=== PATIENT | male | born 1930 | race Caucasian/White ===

== ENCOUNTER 2016-11-14 13:48 | Inpatient (IN) | payer OTHER, MEDICARE ==
[~2016-11-14] VITALS: Ht 172.7 cm; Wt 90.3 kg
--- NOTE | 2016-11-14 14:09 | NUR ---
PT BIBA FROM [facility] FOR AMS. PER DAUGHTER PT IS NORMALLY ALERT AND ORIENTED. DAUGHTER STATES PATIENT WAS LAST SEEN AT [facility] SATURDAY NIGHT. PT ARRIVES IN ED LETHARGIC AND AMS. PT NOTED TO HAVE TREMORS AND LEFT SIDED FACIAL DROOP WHICH PER EMS IS PTS BASELINE. PT HAD LABS DONE AND HAD POTASSIUM OF 5.2 AND ELEVATED WBC
--- NOTE | 2016-11-14 14:28 | NUR ---
DAUGHTER AT BEDSIDE, REPORTING PT IS NOT AT HIS BASELINE. GENERALLY CAN EXPRESS SELF CLEARER THAN HE CAN TODAY.
[2016-11-14] MEDS ORDERED: LIDOCAINE1 EACH TOP (14:37)
[2016-11-14] MEDS ORDERED: ASPIRIN81 M4 PO (14:37)
--- NOTE | 2016-11-14 14:37 | NUR ---
ORDERS PLACED BY CHEST XRAY AT THE BEDSIDE
[2016-11-14] MEDS ORDERED: TRAMADOL HCL50 M1 PO (14:38)
[2016-11-14] MEDS ORDERED: AMOXICILLIN500 M3 PO (14:39)
[2016-11-14] MEDS ORDERED: ESCITALOPRAM OX20 MG PO (14:39)
[2016-11-14] MEDS ORDERED: TOPROL XL25 M1 PO (14:40)
[2016-11-14] MEDS ORDERED: ALLOPURINOL100 M1 PO (14:40)
[2016-11-14] MEDS ORDERED: ATORVASTATIN CA10 M1 PO (14:40)
[2016-11-14] MEDS ORDERED: AMLODIPINE BESYL5 M1 PO (14:41)
[2016-11-14] MEDS ORDERED: ACIDOPHILUS1 EACH PO ×2 (14:42→14:46)
[2016-11-14] MEDS ORDERED: LASIX40 M1 PO (14:42)
[2016-11-14] MEDS ORDERED: ISOSORBIDE MONO60 M1 PO (14:42)
[2016-11-14] MEDS ORDERED: LANTUS SOL100 UNIT/1 SC (14:43)
[2016-11-14] MEDS ORDERED: NOVOLOG FL100 UNIT/1 SC (14:44)
[2016-11-14] MEDS ORDERED: CARBIDOPA-LEVO1 EAC8 PO (14:44)
--- NOTE | 2016-11-14 14:44 | NUR ---
LABS DRAWN AND SENT (BLUE, SST, LAV, ARREOLA, PINK)
[2016-11-14] MEDS ORDERED: ADVAIR 250-501 EACH INH (14:45)
[2016-11-14] MEDS ORDERED: CRANBERRY400 M3 PO (14:45)
[2016-11-14] MEDS ORDERED: DAILY MULTIPLE1 EACH PO (14:46)
[2016-11-14] MEDS ORDERED: FISH OIL 1,2001 EACH PO (14:46)
[2016-11-14] MEDS ORDERED: LATANOPROST2.5 ML OPH (14:47)
--- NOTE | 2016-11-14 14:50 | NUR ---
TAKEN TO CT SCAN VIA STRETCHER
--- NOTE | 2016-11-14 14:53 | RADIOLOGY REPORT ---
EXAMINATION: XR PORTABLE CHEST CLINICAL INFORMATION: Weakness. Confusion. COMPARISON: None TECHNIQUE: Portable AP portable view of the chest was obtained. 2:37 PM FINDINGS: Lung volume low. Lungs are clear. No pulmonary vascular congestion or pleural effusion. Heart size normal. There are vascular wall calcifications of thoracic aorta. Ventriculoperitoneal shunt line over the right side of the chest IMPRESSION: No acute abnormality of chest.
[2016-11-14 14:54] LABS: ABSOLUTE BASOPHIL COUNT 0 /CUMM (0.0-0.2); ABSOLUTE EOSINOPHIL COUNT 0.3 /CUMM (0.0-0.7); ABSOLUTE GRANULOCYTE CT 8.5 /CUMM (1.4-6.5); ABSOLUTE LYMPH COUNT 2.1 /CUMM (1.2-3.4); BASOPHIL % 0.4 % (0.0-2.0); EOSINOPHIL % 2.2 % (0-5); GRANULOCYTE % 71.3 % (42.2-75.2); HEMATOCRIT 36.6 % (42-52); MEAN CORPUSCULAR HGB 27.8 PG (27.0-31.0); MEAN PLATELET VOLUME 9.5 FL (7.4-10.4); PLATELET COUNT 177 /CUMM (130-400); RED BLOOD CELL CT 4.21 /CUMM (4.70-6.10); WHITE BLOOD CELL COUNT 11.9 /CUMM (4.8-10.8)
[2016-11-14 14:58] LABS: PT 11.6 SEC (9.4-12.5)
--- NOTE | 2016-11-14 15:05 | CT SCAN REPORT ---
EXAMINATION: CT HEAD WITHOUT CONTRAST CLINICAL INFORMATION: Weakness. Confusion. COMPARISON: None TECHNIQUE: Contiguous axial imaging was performed from the skull base to vertex without intravenous administration of contrast. DLP: 672.25 mGy-cm FINDINGS: There is motion which limits study. 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 There is atrophy with prominence of the ventricles and the sulci and hypodensity of the periventricular white matter due to chronic small vessel ischemic disease. There is vascular calcifications of the internal carotid arteries bilaterally. There is no evidence of acute intracranial hemorrhage or acute territorial infarction. No abnormal mass effect or midline shift is seen. Vazquez to white matter differentiation is well preserved. No extra-axial fluid collections are identified. There is a ventriculoperitoneal shunt present attending from the right occipital bone. Catheter tip extends into the right temporal region with catheter tip abutting against the right sphenoid bone in the middle cranial fossa Lobular soft tissue density opacifies the left maxillary sinus. There is a surgical window in the medial wall the left maxillary sinus. The mastoid air cells and middle ear cavities are normally aerated. IMPRESSION: No acute intracranial pathology. Cerebral atrophy. Right-sided ventricular catheter. Lobular density opacifying the left maxillary sinus.
--- NOTE | 2016-11-14 15:12 | NUR ---
REPORT GIVEN TO CYNTHIA RODRIGUEZ
--- NOTE | 2016-11-14 15:14 | ED AMS/SEIZURE/WEAK/DIZZY ---
History of Present Illness General Chief Complaint: Altered Mental Status Stated Complaint: BIBA AMS Source: family, old records, EMS Exam Limitations: clinical condition Vital Signs & Intake/Output Vital Signs & Intake/Output Vital Signs Date Time Temp Pulse Resp B/P B/P Pulse O2 O2 Flow FiO2 Mean Ox Delivery Rate 11/14 1601 97.0 74 20 153/65 94 Nasal 2.0L Cannula 11/14 1519 98.7 70 22 134/62 94 Nasal 2.0L Cannula 11/14 1452 97 Room Air 11/14 1400 96.4 74 20 134/56 98 Room Air Allergies Coded Allergies: cefadroxil (From DURICEF) (UNKNOWN 11/14/16) cefuroxime (From CEFTIN) (UNKNOWN 11/14/16) donepezil (From ARICEPT) (UNKNOWN 11/14/16) rivastigmine (From EXELON) (UNKNOWN 11/14/16) Reconcile Medications Allopurinol 100 MG TABLET 2 TAB PO DAILY UNKNOWN (Reported) Amlodipine Besylate 5 MG TABLET 1 TAB PO DAILY HEART (Reported) Amoxicillin 500 MG TABLET 1 TAB PO ONCE DENTAL APPT (Reported) Aspirin (Aspirin*) 81 MG TAB.CHEW 1 TAB PO DAILY HEART HEALTH (Reported) Atorvastatin Calcium 10 MG TABLET 1 TAB PO 1700 CHOLESTEROL (Reported) Carbidopa/Levodopa (Carbidopa-Levodopa 25-250 Tab) 25 MG-250 MG TABLET 1 TAB PO TID PARKINSONS (Reported) Cranberry Fruit (Cranberry) (Unknown Strength) TABLET (Unknown Dose) PO BID SUPPLEMENT (Reported) Escitalopram Oxalate 20 MG TABLET 1 TAB PO DAILY MENTAL HEALTH (Reported) Fish Oil/Dha/Epa (Fish Oil 1,200 MG Fish Oil) 1,200 MG-144 MG-216 MG CAPSULE 1 CAP PO DAILY SUPPLEMENT (Reported) Fluticasone/Salmeterol (Advair 250-50 Diskus) 250 MCG-50 MCG/DOSE BLST.W.DEV 1 PUF INH BID BREATHING PROBLEMS (Reported) Furosemide (Lasix) 40 MG TABLET 1 TAB PO DAILY WATER RETENTION (Reported) Insulin Aspart, Recombinant (Novolog Flexpen) 100 UNIT/ML INSULN.PEN 12 U SC TID DIABETES (Reported) Insulin Glargine,Hum.rec.anlog (Lantus Solostar) 100 UNIT/ML (3 ML) INSULN.PEN 8 UNIT SC QPM DIABETES (Reported) Isosorbide Mononitrate (Isosorbide Mononitrate ER) 60 MG TAB.ER.24H 1 TAB PO DAILY HEART (Reported) Lactobacillus Acidophilus (Acidophilus) 1 EACH CAPSULE 1 CAP PO DAILY GI ( Reported) Latanoprost 0.005 % DROPS 1 GTT OPH QPM EYE (Reported) Lidocaine 5 % ADH..PATCH 1 PAT TOP DAILY PAIN (Reported) Metoprolol Succ XL (Toprol XL) 25 MG TAB 1 TAB PO DAILY HEART (Reported) Multivitamin (Daily Multiple Vitamin) 1 EACH TABLET 1 TAB PO DAILY VITAMIN SUPPORT (Reported) Tramadol HCl 50 MG TABLET 0.5 TAB PO BID PAIN (Reported) Triage Note: [facility]. PER DAUGHTER PT IS NORMALLY ALERT AND ORIENTED. DAUGHTER STATES PATIENT WAS LAST SEEN AT [facility] SATURDAY NIGHT. PT ARRIVES IN ED LETHARGIC AND AMS. PT NOTED TO HAVE TREMORS AND LEFT SIDED FACIAL DROOP WHICH PER EMS IS PTS BASELINE. PT HAD LABS DONE AND HAD POTASSIUM OF 5.2 AND ELEVATED WBC Triage Nurses Notes Reviewed? yes Onset: Abrupt Duration: day(s): (1), last seen normal saturday Injury Environment: home Severity: mild, moderate No Modifying Factors: none HPI: This is an 85-year-old male with history of Parkinson's, diabetes, COPD, nonambulatory for several months who presents to the ER for chief complaint of change in mental status. Daughter at the bedside who is his legal guardian states that she has not seen him since Saturday but he is change from his baseline. Speech is garbled and he is confused. He appears to have bitten his tongue. Patient without an history of seizures but does have a history of previous TIA. He is s/p treatment for pneumonia. Past History Travel History Traveled to [place] past 21 day No Medical History Any Pertinent Medical History? 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 No Review of Systems Review of Systems Constitutional: Reports: see HPI (UNABLE TO OBTAIN). Physical Exam Physical Exam General Appearance: well developed/nourished, alert, awake, anxious, mild distress, moderate distress Head: atraumatic Eyes: Bilateral: PERRL. Ears, Nose, Throat: BRUISING ON TONGUE Neck: normal inspection Respiratory: normal breath sounds, chest non-tender, no respiratory distress Cardiovascular: regular rate/rhythm Peripheral Pulses: 2+ radial (R), 2+ radial (L) Gastrointestinal: soft, non-tender Back: normal inspection Extremities: 5/5 STRENGTH B/L ARMS Neurologic/Psych: awake, alert Skin: intact, normal color, warm/dry Core Measures ACS in differential dx? No CVA/TIA Diagnosis: Yes NIH Stroke Scale: Total 1 Comment: aspirin given in ecf Severe Sepsis Present: No Septic Shock Present: No Progress Differential Diagnosis: CVA/stroke, dehydration, encephalitis, seizure disorder Plan of Care: Orders Procedure Date/time Status Admit to inpatient 11/14 1629 Active Straight Cath 11/14 1628 Active CULTURE,URINE 11/14 1628 Active BLOOD CULTURE 11/14 1628 Active ARTERIAL BLOOD GAS (GEN) 11/14 1529 Active Add-on Test (ER Only) 11/14 1529 Active PROLACTIN 11/14 1439 Complete URINE DRUGS OF ABUSE 11/14 1432 Active URINALYSIS 11/14 1432 Active TROPONIN LEVEL 11/14 1432 Complete PROTHROMBIN TIME 11/14 1432 Complete MAGNESIUM 11/14 1432 Complete COMPREHENSIVE METABOLIC PANEL 11/14 1432 Complete CBC WITHOUT DIFFERENTIAL 11/14 1432 Complete EKG 11/14 1432 Active Laboratory Tests 11/14/16 1540: pH 7.42, pCO2 47 H, pO2 93, HCO3 30 H, ABG O2 Sat (Measured) 96.0, P-50 (Temp Corrected) N, Carboxyhemoglobin 0.5 L, O2 Concentration % 2L, Temperature 98.7, O2 Delivery Method NC, Phlebotomy Draw Site RIGHT RADIAL 11/14/16 1439: Anion Gap 12, Estimated GFR 32 L, BUN/Creatinine Ratio 17.5, Glucose 82, Calcium 8.4, Magnesium 2.0, Total Bilirubin 0.6, AST 19, ALT 28, Alkaline Phosphatase 86, Troponin I 0.02, Total Protein 5.8 L, Albumin 3.2 L, Globulin 2.6, Albumin/Globulin Ratio 1.2, Prolactin 6.3, PT 11.6, INR 1.11, CBC w Diff NO MAN DIFF REQ, RBC 4.21 L, MCV 87.0, MCH 27.8, RDW 17.0 H, MPV 9.5, Gran % 71.3 , Lymphocytes % 17.9 L, Monocytes % 8.2, Eosinophils % 2.2, Basophils % 0.4, Absolute Granulocytes 8.5 H, Absolute Lymphocytes 2.1, Absolute Monocytes 1.0 H, Absolute Eosinophils 0.3, Absolute Basophils 0, PUBS MCHC 32.0 L Microbiology 11/15 1627 URINE ROUT: Urine Culture - ORD 11/15 1627 BLOOD: Blood Culture - ORD 11/15 1627 BLOOD: Blood Culture - ORD Diagnostic Imaging: Viewed by Me: Radiology Read, CT Scan. Discussed w/RAD: Radiology Read, CT Scan. Radiology Impression: PATIENT: EDEL TRISTAN PRESENT AGE: 85 PATIENT ACCOUNT NO: [id number] : 32 LOCATION: [facility] ORDERING PHYSICIAN: CHRISTINE QUESADA MD SERVICE DATE: 11/14/16 EXAM TYPE: CAT - CT HEAD WO IV CONTRAST EXAMINATION: CT HEAD WITHOUT CONTRAST CLINICAL INFORMATION: Weakness. Confusion. COMPARISON: None TECHNIQUE: Contiguous axial imaging was performed from the skull base to vertex without intravenous administration of contrast. DLP: 672.25 mGy-cm FINDINGS: There is motion which limits study. 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 There is atrophy with prominence of the ventricles and the sulci and hypodensity of the periventricular white matter due to chronic small vessel ischemic disease. There is vascular calcifications of the internal carotid arteries bilaterally. There is no evidence of acute intracranial hemorrhage or acute territorial infarction. No abnormal mass effect or midline shift is seen. Vazquez to white matter differentiation is well preserved. No extra-axial fluid collections are identified. There is a ventriculoperitoneal shunt present attending from the right occipital bone. Catheter tip extends into the right temporal region with catheter tip abutting against the right sphenoid bone in the middle cranial fossa Lobular soft tissue density opacifies the left maxillary sinus. There is a surgical window in the medial wall the left maxillary sinus. The mastoid air cells and middle ear cavities are normally aerated. IMPRESSION: No acute intracranial pathology. Cerebral atrophy. Right- sided ventricular catheter. Lobular density opacifying the left maxillary sinus. DICTATED BY: RAISA HOYOS MD DATE/TIME DICTATED:11/14/161456 FIRE SAFETY INSPECTOR :RIAZ DATE/TIME TRANSCRIBED:11/14/161456 CONFIDENTIAL, DO NOT COPY WITHOUT APPROPRIATE AUTHORIZATION. <Electronically signed in Other Vendor System> SIGNED BY: RAISA HOYOS MD 11/14/16 1505 CXR Impression: PATIENT: EDEL TRISTAN PRESENT AGE: 85 PATIENT ACCOUNT NO: [id number] : 32 LOCATION: [facility] ORDERING PHYSICIAN: CHRISTINE QUESADA MD SERVICE DATE: 11/14/16 EXAM TYPE: RAD - XRY-PORTABLE CHEST XRAY EXAMINATION: XR PORTABLE CHEST CLINICAL INFORMATION: Weakness. Confusion. COMPARISON: None TECHNIQUE: Portable AP portable view of the chest was obtained. 2:37 PM FINDINGS: Lung volume low. Lungs are clear. No pulmonary vascular congestion or pleural effusion. Heart size normal. There are vascular wall calcifications of thoracic aorta. Ventriculoperitoneal shunt line over the right side of the chest IMPRESSION: No acute abnormality of chest. DICTATED BY: RAISA HOYOS MD DATE/TIME DICTATED:11/14/161447 FIRE SAFETY INSPECTOR:RIAZ DATE/TIME TRANSCRIBED:11/14/161447 CONFIDENTIAL, DO NOT COPY WITHOUT APPROPRIATE AUTHORIZATION. <Electronically signed in Other Vendor System> SIGNED BY: RAISA HOYOS MD 11/14/16 1453 Initial ED EKG: RBBB Prior EKG: unchanged Departure Departure Time of Disposition: 1628 Disposition: STILL A PATIENT Condition: Stable Clinical Impression Primary Impression: Altered mental state Secondary Impressions: NAFISA (acute kidney injury) Referrals: JEAN REIS,FIFI Gonzalez (PCP/Family) Departure Forms: Customer Survey General Discharge Information Admission Note Spoke With: RAMON SYLVESTER MD Documentation of Exam: Documentation of any treatments & extenuating circumstances including Concerns Regarding Discharge (functional status, medication knowledge or non-compliance, living conditions, etc.) that warrant an admission rather than observation: [ TELE MONITOR, NEURO CHECKS, IV FLUIDS, MONITOR I/O, NEURO CONSULT, CONSIDER EEG, F/U RESULTS OF BLOOD AND URINE CULTURES]
--- NOTE | 2016-11-14 15:31 | NUR ---
[phone] HOLLI BAUMAN PT DAUGHTER
--- NOTE | 2016-11-14 15:48 | NUR ---
RESP AT BEDSIDE
--- NOTE | 2016-11-14 15:50 | NUR ---
DR GATICA AT BEDSIDE
--- NOTE | 2016-11-14 16:00 | NUR ---
PT FLUIDS RUNNING PER EMAR
--- NOTE | 2016-11-14 17:16 | History & Physical ---
LOREN REIS,[facility] [place] 11/14/16 4295: General Information and HPI MD Statement: I have seen and personally examined EDEL PINEDA and documented this H&P. The patient is a 85 year old M who presented with a patient stated chief complaint of [altered mental status]. Source of Information: family, W10 Exam Limitations: unable to give history, clinical condition, confusion, dementia History of Present Illness: Mr. Pineda is a 85 y/o M with PMHx of Parkinson's disease, subarachnoid hemorrhage s/p evacuation and placement of right DIRECT CARE SPECIALIST shunt and colon cancer s/p resection who presents from [facility] with 5-day history of altered mental status. Patient was unable to give any history due to his altered mental status and underlying dementia and history was obtained from [facility] and his daughter over the phone. Patient was diagnosed with pneumonia based on a CXR that was performed on 11/01/16 and treated with a 10-day course of levofloxacin. Urine culture was obtained on 11/10/16 which grew 10,000 colonies of Pseudomonas resistant to ciprofloxacin and sensitive ceftazidime, gentamicin and imipenem. Patient has poor performance status at baseline. He is confused and requires Janene lift but can still hold a conversation and feed himself. According to patient's daughter, patient's mental status has deteriorated over the past 5 days. Patient's nurse reports that the night prior to current presentation, he appeared to be agitated. Today, he was noted to have increasing tremors in his hands and was lethargic at the nursing facility. Allergies/Medications Home Med list Allopurinol 100 MG TABLET 2 TAB PO DAILY UNKNOWN (Reported) Amlodipine Besylate 5 MG TABLET 1 TAB PO DAILY HEART (Reported) Amoxicillin 500 MG TABLET 1 TAB PO ONCE DENTAL APPT (Reported) Aspirin (Aspirin*) 81 MG TAB.CHEW 1 TAB PO DAILY HEART HEALTH (Reported) Atorvastatin Calcium 10 MG TABLET 1 TAB PO 1700 CHOLESTEROL (Reported) Carbidopa/Levodopa (Carbidopa-Levodopa 25-250 Tab) 25 MG-250 MG TABLET 1 TAB PO TID PARKINSONS (Reported) Cranberry Fruit (Cranberry) (Unknown Strength) TABLET (Unknown Dose) PO BID SUPPLEMENT (Reported) Escitalopram Oxalate 20 MG TABLET 1 TAB PO DAILY MENTAL HEALTH (Reported) Fish Oil/Dha/Epa (Fish Oil 1,200 MG Fish Oil) 1,200 MG-144 MG-216 MG CAPSULE 1 CAP PO DAILY SUPPLEMENT (Reported) Fluticasone/Salmeterol (Advair 250-50 Diskus) 250 MCG-50 MCG/DOSE BLST.W.DEV 1 PUF INH BID BREATHING PROBLEMS (Reported) Furosemide (Lasix) 40 MG TABLET 1 TAB PO DAILY WATER RETENTION (Reported) Insulin Aspart, Recombinant (Novolog Flexpen) 100 UNIT/ML INSULN.PEN 12 U SC TID DIABETES (Reported) Insulin Glargine,Hum.rec.anlog (Lantus Solostar) 100 UNIT/ML (3 ML) INSULN.PEN 8 UNIT SC QPM DIABETES (Reported) Isosorbide Mononitrate (Isosorbide Mononitrate ER) 60 MG TAB.ER.24H 1 TAB PO DAILY HEART (Reported) Lactobacillus Acidophilus (Acidophilus) 1 EACH CAPSULE 1 CAP PO DAILY GI ( Reported) Latanoprost 0.005 % DROPS 1 GTT OPH QPM EYE (Reported) Lidocaine 5 % ADH..PATCH 1 PAT TOP DAILY PAIN (Reported) Metoprolol Succ XL (Toprol XL) 25 MG TAB 1 TAB PO DAILY HEART (Reported) Multivitamin (Daily Multiple Vitamin) 1 EACH TABLET 1 TAB PO DAILY VITAMIN SUPPORT (Reported) Tramadol HCl 50 MG TABLET 0.5 TAB PO BID PAIN (Reported) Past History Travel History Traveled to [place] past 21 day No Medical History Neurological: Parkinson's disease, TIA, subarachnoid hemorrhage Cardiovascular: endocarditis, RBBB Respiratory: COPD Renal: benign prost hyperplasia Musculoskeletal: gout Endocrine: diabetes Cancer(s): colon/rectal cancer, skin cancer Surgical History Surgical History: appendectomy, colon resection, evacuation of subarachnoid hemorrhage, right DIRECT CARE SPECIALIST shunt placement Past Family/Social History Psychosocial History Where do you live? Jail Facility Smoking Status: Former Smoker Living Will? yes Functional Ability ADLs Needs Assist: dressing, eating, toileting, bathing. Ambulation: non-ambulatory IADLs Needs Assist: shopping, housework, finances, food prep, telephone, transportation, medication admin. Review of Systems Review of Systems Constitutional: Reports: no symptoms. Exam & Diagnostic Data Last 24 Hrs of Vital Signs/I&O Vital Signs Date Time Temp Pulse Resp B/P B/P Pulse O2 O2 Flow FiO2 Mean Ox Delivery Rate 11/14 1930 97.1 67 20 148/64 100 Nasal 2.0L Cannula 05/03 1915 Nasal 2.0L Cannula 11/14 1817 96.7 70 20 168/69 92 Nasal 2.0L Cannula 11/14 1720 97.0 84 22 143/66 93 Nasal 2.0L Cannula 11/14 1656 97.0 80 20 150/70 94 Nasal 2.0L Cannula 11/14 1601 97.0 74 20 153/65 94 Nasal 2.0L Cannula 11/14 1519 98.7 70 22 134/62 94 Nasal 2.0L Cannula 11/14 1452 97 Room Air 05 1400 96.4 74 20 134/56 98 Room Air Physical Exam General Appearance Lethargic, Confused, Follows Some Commands, Not Oriented to Time, Person or Place Skin Purpuric Lesions Scattered Over Bilateral Lower Extremities HEENT Atraumatic, Dry Mucous Membranes, Left Facial Droop (Chronic), Bilateral Pupils Sluggish to Light Neck Supple Cardiovascular Regular Rate, Normal S1, Normal S2, No Murmurs, Gallops, Rubs Lungs Scattered Rhonchi, Diminished Breath Sounds Abdomen Soft, No Tenderness, Positive Bowel Sounds Neurological Reflexes 2+, No Focal Deficits Noted Extremities No Clubbing, No Cyanosis, No Edema, Normal Pulses Last 24 Hrs of Labs/Daniel: Laboratory Tests 11/14/16 1645: Urine Opiates Screen 137.00, Methadone Screen 62, Barbiturate Screen < 60, Ur Phencyclidine Scrn < 6.00, Amphetamines Screen < 100, U Benzodiazepines Scrn < 85, Urine Cocaine Screen < 50, Urine Cannabis Screen < 5.00, Urinalysis LIGHT H , Urine Color YEL, Urine Clarity CLDY H, Urine pH 6.5, Ur Specific Dubberly 1.010, Urine Protein NEG, Urine Ketones NEG, Urine Nitrite POS H, Urine Bilirubin NEG, Urine Urobilinogen 0.2, Ur Leukocyte Esterase LARGE H, Ur Microscopic SEDIMENT EXAMINED, Urine RBC RARE, Urine WBC > 75 H, Ur Epithelial Cells RARE, Urine Bacteria MOD H, Urine Mucus RARE, Micro UA Comment , Urine Hemoglobin TRACE-INTACT H, Urine Glucose NEG 11/14/16 1540: pH 7.42, pCO2 47 H, pO2 93, HCO3 30 H, ABG O2 Sat (Measured) 96.0, P-50 (Temp Corrected) N, Carboxyhemoglobin 0.5 L, O2 Concentration % 2L, Temperature 98.7, O2 Delivery Method NC, Phlebotomy Draw Site RIGHT RADIAL 11/14/16 1439: Anion Gap 12, Estimated GFR 32 L, BUN/Creatinine Ratio 17.5, Glucose 82, Calcium 8.4, Magnesium 2.0, Total Bilirubin 0.6, AST 19, ALT 28, Alkaline Phosphatase 86, Troponin I 0.02, Total Protein 5.8 L, Albumin 3.2 L, Globulin 2.6, Albumin/Globulin Ratio 1.2, Prolactin 6.3, PT 11.6, INR 1.11, CBC w Diff NO MAN DIFF REQ, RBC 4.21 L, MCV 87.0, MCH 27.8, RDW 17.0 H, MPV 9.5, Gran % 71.3 , Lymphocytes % 17.9 L, Monocytes % 8.2, Eosinophils % 2.2, Basophils % 0.4, Absolute Granulocytes 8.5 H, Absolute Lymphocytes 2.1, Absolute Monocytes 1.0 H, Absolute Eosinophils 0.3, Absolute Basophils 0, PUBS MCHC 32.0 L Diagnostic Data EKG Results HR 72 Normal sinus rhythm RBBB QTc 473 CXR Results No acute abnormality of the chest. Other Results CT HEAD: No acute intracranial pathology. Cerebral atrophy. Right-sided ventricular catheter. Lobular density opacifying the left maxillary sinus. Assessment/Plan Assessment: 85 y/o M with PMHx of Parkinson's disease, subarachnoid hemorrhage s/p evacuation and placement of right DIRECT CARE SPECIALIST shunt and colon cancer s/p resection who presents with altered mental status. #Altered mental status: Differential includes seizure given bruise on tongue, CVA vs. TIA, although CT Head is negative and neuro exam is grossly nonfocal, and infection, albeit there is no clear source and patient is afebrile with only mild leukocytosis. Although UTI is on the differential given recent positive urine culture, this should have been treated with the 10-day course of levofloxacin that patient received for pneumonia. CT Head no acute intracranial pathology. ABG with mild hypercapnia with pCO2 of 47 but CXR with no evidence of pneumonia. * Admit to telemetry to monitor for arrhythmias. * Neurology and ID consulted. Appreciate their recs. * EEG ordered to evaluate for seizure activity. * Neurochecks Q4H. * Aspiration and seizure precautions. * NPO pending swallow evaluation. * Monitor off antibiotics. * BCx and UCx ordered. #NAFISA on CKD stage 3: Cr 2.0 on admission, slightly increased from baseline of 1.3-1.7. Likely prerenal in the setting of dehydration. * Gentle hydration with D5W-1/2 NS @ 75 cc/hr. * Monitor lytes and kidney function. * Avoid nephrotoxic medications. #Parkinson's disease: * Continue [id number] Carbidopa/Levodopa 25/250 mg 1 tab PO TID. #Insulin-dependent T2DM: Takes Lantus 8 U SQ QPM and Novolog 12 U SQ TID as outpatient. * Accu-checks and sliding scale Novolin Q6H while NPO. #HTN: * Continue [id number]-[id number] metoprolol XL 25 mg PO daily, amlodipine 5 mg PO daily. #Gout: * Continue bayhl-oh-mxajtgdoo allopurinol 200 mg PO daily. #Depression: * Continue baqbx-sf-gjoceaekp escitalopram 20 mg PO daily. Diet: NPO DVT PPx: HSQ and ALPs CODE: DNR/DNI As Ranked By This Provider Problem List: 1. Altered mental state 2. Acute renal failure superimposed on stage 3 chronic kidney disease 3. Parkinsons disease 4. HTN (hypertension) 5. HLD (hyperlipidemia) 6. Gout 7. Depression Core Measures/Miscellaneous Acute Coronary Syndrome ACS Diagnosis: No Cerebrovascular Accident CVA/TIA Diagnosis: No Congestive Heart Failure CHF Diagnosis: No Venous Thromboembolism VTE Risk Factors: Age > 40, Immobility, paresis, Obesity No [facility] VTE prophylaxis d/t: No contraindications No VTE Pharm Prophylaxis d/t: No contraindications VTE Diagnosis: No VTE Type: NONE VTE Confirmed by (Test): NONE Severe Sepsis Severe Sepsis Present: No Septic Shock Septic Shock Present: No Miscellaneous Documentation Attending Case Discussed With: HIGINIO REIS,RAMON Ardon Primary Care Physician: FIFI PENA MD Patient sees these Specialists N/A Level of Patient Care: Telemetry DONAKENYAJACE 11/14/16 8968: General Information and [facility] MD Statement: I have seen and personally examined EDEL PINEDA and documented this H&P. The patient is a 85 year old M who presented with a patient stated chief complaint of [ALTERED MENTAL STATUS]. Source of Information: family, W10 Exam Limitations: no limitations Allergies/Medications Allergies: Coded Allergies: cefadroxil (From FeedMagnetLIZZYF) (UNKNOWN 11/14/16) cefuroxime (From CEFTIN) (UNKNOWN 11/14/16) donepezil (From ARICEPT) (UNKNOWN 11/14/16) rivastigmine (From EXELON) (UNKNOWN 11/14/16) Resident Review Statement Resident Statement: examined this patient, discussed with chief of internal medicine, agreed with chief of internal medicine Other Findings: This is 85-year-old male with past medical history , Diabetes Mellitus, COPD, previous colon cancer status post bowel resection, previous subarachnoid hemorrhage which was evacuated and s/p right DIRECT CARE SPECIALIST shunt, previous endocarditis, hypertension, hyperlipidemia comes in with altered mental status. We could not get much history from the patient is a patient was not alert and oriented, he did answer some of her questions however it was difficult to have any conversation with him, he would not follow commands completely and only followed commands intermittently. We called [facility] and looked at the W 10 called his daughter who said that he has not been himself since 6 days prior to admission, he has been more confused, altered since 6 day prior to admission. He had a recent chest x-ray done on 11/01/2016 at [facility] and was found to have evidence of pneumonia and was treated with Levaquin for a total of 10 days. A urinalysis and urine culture was also done 11/10/2016 4 days prior to admission which showed 10,000 colonies of Pseudomonas that was resistant to ciprofloxacin and sensitive to ceftazidime, gentamicin and imipenem. As per the documentation that we weren't sure if the patient was dictated separately for the urine infection. At baseline the patient is were left, he can feed himself, he can do certain things and he is usually more responsive and talking then since last 5 days. As per daughter as well as the snf his mental status has clearly worsened from baseline. VITALS on presentation patient was afebrile, pulse was 84, respirations 22, blood pressure was 143/66, he was 93% saturated on 2 L nasal cannula. Physical exam patient was alert however not oriented, was responding to her questions only intermittently, he would not follow commands, he was not in any acute distress. CVS S1-S2 present no murmur. RS, left basilar rhonchi were heard, otherwise entry bilaterally present. For a predominance soft nontender. Bilateral lower extremity, no edema, pulses palpable. Pupils equal, very sluggishly reactive. Nuero exam : patient could feel a pinching sensation on both the limbs as well as both the hands, reflexes were intact, and had leadpipe rigidity in bilateral lower extremity and cogwheel rigidity in bilateral upper extremities. Cranial nerves and cerebellar signs could not be tested the patient was unable to follow commands. left Sided facial droop was noted, however CT was negative for any acute intracranial pathology however cerebral atrophy and right-sided ventricular sided DIRECT CARE SPECIALIST shunt. Chest x-ray did not show any evidence of pneumonia. Per the W 10 and talking to the staff he has this. ABG - hypercapnia with pCO2 of 47. Will admit the patient to telemetry floor for continuous neurological check. Patient came in with altered mental status, patient was being treated for pneumonia found on xray 11/01/16 and got 10 days of Levaquin, he had a UA done at [facility] on 11/10/16 that was positive for Pseudomonas 10,000 colonies and it was resistant to ciprofloxacin, ? unclear if it was treated. Patient comes in today With continued Altered Mental Status, He has mildly elevated Count of 11, No Bands, Vitals Are Stable, His UA Is Positive for Greater Than 75 WBCs and Leukocyte Esterase. Altered Mental Status Could Be Secondary to Infection. Other Possibilities could be electrolyte abnormalities however all his electrolytes are within normal limits. Sugar was noted to be 85,he ia a diabetic , so will start d5 half NS ( 1 bag). It was difficult to get any symptoms from him. Other possibility could be seizure or CVA however his neurological exam that is present is his baseline and it has not changed therefore less likely a CVA however still on the differential. Other possibility is seizure-like activity as he has bitten his tongue which is swollen,could be postictal, prolactin done in Er was normal. Problem list along with assessment and plan. #1 Encephalopathy * continue monitoring vitals every shift, new neuro checks every [address] hourly. * Ct bus driver/monitor * Possibility could be infection, UA positive however we discussed the case with Dr. rand and for now we are holding off the antibiotic as per him and he will see patient formally in am. * Ct to follow blood cultures, urine cultures. * Neurological consult, EEG. * seizure precuations. * aspiration precautions. * Ct to monitor white count, electrolytes. * patient NPO pendign swallow, can give meds. #2 NAFISA * BUN to be 2.0, BUN of 34. * Baseline creatinine between 1.3-1.8 * ct 1 bag of d5 half normal saline at 75 ml.hr * Ct to trend. #3 HL * Ct lipitor #4 DM * Ct monitor FS * for now will hold off basal insulin as sugar was noed to be 85 * patient is npo * novolin SS * Once passes swallow evalve CC-3 diet and change ot novolog #5 HTN * Ct metoprolol * Ct norvasc #6 Parkinsonism * Ct sinemet * nuero consult for suspected seizure. * NPo for now * feed once passes swallow evalve. #7 Gout * Ct allopurinol DNR/DNI DVT px heparin NPO untill passes swallow evalve. HIGINIO REIS,RAMON 11/16/16 1340: Attending MD Review Statement Attending Statement Attending MD Statement: examined this patient, discuss w/resident/PA/HUMIDIFIER OPERATOR, agreed w/resident/PA/HUMIDIFIER OPERATOR, discussed with family, reviewed EMR data (avail), reviewed images Attending Assessment/Plan: See medical brief addendum note dated 11/14/16
--- NOTE | 2016-11-14 17:23 | Admission Certification ---
Admission Certification Certification Statement - As attending physician, I certify that at the time of - admission, based on clinical presentation, severity of - symptoms, need for further diagnostic testing and - therapeutic interventions, and risk of adverse outcomes - without in-hospital treatment, in my clinical assessment, - this patient requires an acute hospital stay for a minimum - of two nights or longer. I have also considered psychsocial - factors such as support system, advanced age, financial - issues, cognitive issues, and failed out-patient treatments, - past re-admission history, safety of patient, and lack of - compliance as applicable. Specific rationale supporting this admission is: altered mentation in pt with CKD, PD and DM
--- NOTE | 2016-11-14 17:24 | PN- Att Addend ---
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 He is at [facility] and was last seen by his daughter to be his baseline self on November 12. He now comes in with lethargy, weakness and decreased mentation. On exam he is mildly hypertensive, afebrile, saturating well and has a bruise on his tongue. The neuro exam is hard to pinpoint a focal deficit and there doesn't appear to be any obvious infection on physical exam. His labs show his CKD with a BUN of 35 and a creatinine of 2 that appears slightly worse than before. A leukocytosis of 11.9 (WBC was 11 in 10/29). His UA from November 09 had 15-25 white cells but grew only 10,000 colony-forming units of Pseudomonas. A blood gas done on admission shows mild hypercapnia with a PCO2 of [address] head was unrevealing for any acute pathology. At this point I'm unclear as to the cause of his altered mentation. I don't think he is acutely infected as far as his urine goes. He is allergic to cephalosporins and the Pseudomonas was resistant to Cipro. Will repeat his UA urine culture and blood cultures and call a formal ID consult as to whether that needs to be treated. Will bring him into telemetry and watch him neurologically to make sure he is not having any seizures that would account for the bruise on the tongue and the altered mentation. Will get a formal neurology consult and an EEG. Will continue his antihypertensives, his Norvasc, his metoprolol and his Imdur. We'll continue his aspirin and statin and Sinemet. Will put him on DVT prophylaxis, continue his insulin for his diabetes. We'll not give him any of the tramadol as that could be the cause of the seizures as well and will follow closely.
--- NOTE | 2016-11-14 17:27 | NUR ---
PT IS GOING TO ROOM 189-1
--- NOTE | 2016-11-14 17:39 | NUR ---
HOUSESTAFF AT BEDSIDE FOR EVALUATION
--- NOTE | 2016-11-14 18:27 | NUR ---
REPORT CALLED TO TELE SPOKE WITH CYNTHAI CRUZ AND STATED THAT RN TO TAKE PT IS UNAVAILABLE AND WILL CALL BACK
--- NOTE | 2016-11-14 18:49 | NUR ---
REPORT CALLED AND GIVEN TO MARYAM ON TELE
--- NOTE | 2016-11-14 19:03 | NUR ---
PT MEDICATED PER EMAR WITH 12.5 DEXTROSE FOR BLOOD SUGAR 66
--- NOTE | 2016-11-14 19:13 | PN- Student ---
PATSY HO 11/14/16 1818: Subjective Subjective: Medical Student H&P: CC: altered mental status Limitation: patient is confused and unable to communicate clearly, no family at bedside, health records at the [place] HPI: Amilcar Pineda is an 85yo M [facility] resident with a PMH notable for Parkinson's, TIA, COPD, and DM who was brought in to the ED by ambulance for a 5 day history of altered mental status. Per the senior living, the patient is somehwat confused at baseline and has a pre-existing left facial droop. Per limited phone conversation with the daughter, the patient is able to hold a conversation and feed himself at baseline, but requires Janene lift assistance and is non-ambulatory. The senior living states he has exhibited garbled speech, lethargy, tremors, restlessness, increasing confusion, and has bite keith to his tongue. He does not have a history of seizure activity. Of note, the patient was noted to have pneumonia on 11/01/16 for which he completed a 10 day course of Levaquin 500mg daily at [facility]. He had a UA/ culture on 11/10/16 growing 10,000 colonies of Pseudomonas, which was resistant to Ciprofloxacin. The positive urine culture was not covered with antibiotic therapy. 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 Outpatient medications: * Allopurinol 100 mg tablets, 2 tabs daily * Amlodipine Besylate 5mg daily * Amoxicillin 500 mg prior to dental work only * Aspirin 81mg daily * Atorvastatin 10mg daily * Carbidopa/Levodopa 25ng - 250mg TID * Cranberry supplement BID * Escitalopram 20mg daily * Fish Oil/DHA/EPA 1200mg - 144mg - 216mg daily * Fluticasone/Salmeterol 250mcg - 50mcg 1 puff BID * Furosemide 40mg po daily * Novolog 12u TID * Lantus 8u at bedtime * Isosorbide Mononitrate 60mg daiy * Acidophilus supplement daily * Latanoprost 0.005% drops, 1gtt in eye at bedtime * Lidocaine, 5% patch daily * Metoprolol Succinate XL 25mg daily * Multivitamin supplement daily * Tramadol 50mg tablet, 0.5 tab BID Allergies: Cefuroxime, Cefadroxil, Donepezil, Rivastigmine (unknown reactions) Social: former smoker, lives in senior living. History limited d/t patient condition Family: Unable to obtain d/t condition ROS: unable to obtain further information based on patient condition Current Medications Sig/Yasmeen Start time Last Medication Dose Route Stop Time Status Admin Gentamicin Sulfate 100 MG ONE ONE 11/14 1645 CAN Dextrose/Water 100 ML IV 11/14 1714 Sodium Chloride 500 ML BOLUS ONE 11/14 1530 DC 11/14 IV 11/14 1629 1600 Objective Objective: Vital Signs Date Time Temp Pulse Resp B/P B/P Pulse O2 O2 Flow FiO2 Mean Ox Delivery Rate 11/14 1817 96.7 70 20 168/69 92 Nasal 2.0L Cannula 11/14 1720 97.0 84 22 143/66 93 Nasal 2.0L Cannula 11/14 1656 97.0 80 20 150/70 94 Nasal 2.0L Cannula 11/14 1601 97.0 74 20 153/65 94 Nasal 2.0L Cannula / 1519 98.7 70 22 134/62 94 Nasal 2.0L Cannula / 1452 97 Room Air 11/14 1400 96.4 74 20 134/56 98 Room Air EKG: NSR, old RBBB General: overweight male. Confused and lethargic. Neuro: waxing and waning neurological status - intermittently follows commands. Pupils minimally responsive, speech garbled and unintelligble most of the time. Left facial droop evident. 5/5 strength in all extremities, moves all extremities spontaneously. Cogwheel rigidity noted x4 extremities. HEENT: atraumatic. dry mucosa Neck: supple, no lymphadenopathy CV: RRR, no murmurs or JVD Pulmonary: scattered rhonchi, diminished respiratory effort GI: old midline incisional scar noted. bruising noted in lower abdomen (?insulin sites). Abdomen soft, non-tender, bowel sounds present. Passing flatus : no daniels in place, no apparent trauma Extremities: bruising on shins, distal pulses palpable. Feet are cold and discolored bilaterally. Skin: scattered bruising and small skin tears. Skin is fragile Results Results: Laboratory Tests 11/14/16 1645: Urine Opiates Screen 137.00, Methadone Screen 62, Barbiturate Screen < 60, Ur Phencyclidine Scrn < 6.00, Amphetamines Screen < 100, U Benzodiazepines Scrn < 85, Urine Cocaine Screen < 50, Urine Cannabis Screen < 5.00 Urinalysis LIGHT H, Urine Color YEL, Urine Clarity CLDY H, Urine pH 6.5, Ur Specific [place] 1.010, Urine Protein NEG, Urine Ketones NEG, Urine Nitrite POS H, Urine Bilirubin NEG, Urine Urobilinogen 0.2, Ur Leukocyte Esterase LARGE H, Ur Microscopic SEDIMENT EXAMINED, Urine RBC RARE, Urine WBC > 75 H, Ur Epithelial Cells RARE, Urine Bacteria MOD H, Urine Mucus RARE, Micro UA Comment , Urine Hemoglobin TRACE-INTACT H, Urine Glucose NEG 11/14/16 1540: pH 7.42, pCO2 47 H, pO2 93, HCO3 30 H, ABG O2 Sat (Measured) 96.0, P-50 (Temp Corrected) N, Carboxyhemoglobin 0.5 L, O2 Concentration % 2L, Temperature 98.7, O2 Delivery Method NC, Phlebotomy Draw Site RIGHT RADIAL 11/14/16 1439: Anion Gap 12, Estimated GFR 32 L, BUN/Creatinine Ratio 17.5, Glucose 82, Calcium 8.4, Magnesium 2.0, Total Bilirubin 0.6, AST 19, ALT 28, Alkaline Phosphatase 86, Troponin I 0.02, Total Protein 5.8 L, Albumin 3.2 L, Globulin 2.6, Albumin/Globulin Ratio 1.2, Prolactin 6.3, PT 11.6, INR 1.11, CBC w Diff NO MAN DIFF REQ, RBC 4.21 L, MCV 87.0, MCH 27.8, RDW 17.0 H, MPV 9.5, Gran % 71.3 , Lymphocytes % 17.9 L, Monocytes % 8.2, Eosinophils % 2.2, Basophils % 0.4, Absolute Granulocytes 8.5 H, Absolute Lymphocytes 2.1, Absolute Monocytes 1.0 H, Absolute Eosinophils 0.3, Absolute Basophils 0, PUBS MCHC 32.0 L 11/14/16 CXR: IMPRESSION: No acute abnormality of chest. 11/14/16 CT head: IMPRESSION: No acute intracranial pathology. Cerebral atrophy. Right-sided ventricular catheter. Lobular density opacifying the left maxillary sinus. Assessment/Plan Assessment: Amilcar Pineda is an 85yo M with PMH of Parkinson's, TIA, COPD, and insulin dependent type 2 DM who presented to the ED today for a 5 day history of AMS. Plan: Altered Mental Status: CT head showing no acute pathology. reported 5 day history of symptoms. Has confusion at baseline. Likely not TIA/CVA, although should be considered. Could possibly be related to infectious process (positive UA and recent positive culture, although afebrile and leukocytosis is unimpressive), seizure, or progression of Parkinson's * Admit to inpatient * Consult Neurology * Consult ID * Monitor for seizure activity, neuro checks q4h * EEG * Culture and Sensitivity of urine, antibiotic treatment pending results * Blood cultures Parkinson's Disease: Has been non-ambulatory for several months, cogwheel rigidity noted on exam. On Carbidopa/Levodopa 25mg-250 mg TID. * Neurology consult * Continue Carbidopa/Levodopa COPD: ABG showing mild hypercapnia. CXR negative. No clear evidence of acute exacerbation (no wheezing, mild hypercapnia). Diminished respiratory effort with occasional rhonchi, recent treatment for pneumonia. * Continue supplemental oxygen via NC to keep SpO2 >92% * Continue Advair inhaler * ?Pulmonology consult Insulin Dependent Type 2 DM: on Novolog 12u TID, Lantus 8u at bedtime. Glucose on admission was 82mg/dL. * NPO * Finger sticks * Continue insulin therapy Gout: on Allopurinol 100mg tablets x2 tabs daily. * Continue allopurinol NAFISA on CKD: BUN/Cr elevated on admission, likely pre-renal. Elevated on past admissions as well. * IVF resuscitation * Monitor daily BMP Other: patient normally seeks care at [place], but was denied today d/t [place] ED being full. Unclear and/or incomplete PMH from daughter/Fidel Bojorquez. Will reach out to [place] to obtain medical records. Medication list indicates possible cardiac history. * Continue amlodipine 5mg, aspirin 81mg, atorvastatin 10mg, furosemide 40mg, isosorbide mononitrate 60mg, and metoprolol XL 25mg daily * Obtain medical records from [place] Code status: DNR/DNI Diet: NPO DVT prophylaxis: ALPs
--- NOTE | 2016-11-14 19:15 | NUR ---
ADMISSION NOTE: PATIENT ARRIVES TO ROOM VIA STRETCHER WITH NURSE FROM JIMY RODRIGUEZ RN; PATIENT DROWSEY/ AROUSABLE WITH EFFORT; VSS ON 2L; NSR 70S; BOTTOM RED AND BLANCHABLE; BILAT LOWER EXTREMITIES COLD AND CYANOTIC; DIFFICULT TO OBTAIN DOPPLER PULSES; PATIENT'S TONGUE IS BRUISED AND SWOLLEN WHICH IS CONSISTENT WITH ER REPORT; PATIENT COMFORTED INTO BED; SIZEWISE ORDERED; ALPS IN PLACE; BED ALARM IN PLACE; BED LOCKED IN LOW POSITION; CALLBELL WITHIN REACH
[2016-11-14 19:30] VITALS: BP 148/64
--- NOTE | 2016-11-14 22:24 | NUR ---
NSG NOTE: JOE ROSADO MD NOTIFED THAT PATIENT IS DROWSEY/AROUSABLE WITH GARBLED SPEECH; ALSO NOTIFIED THAT BILAT LOWER EXTREMITIES ARE COLD, BLUE AND DIFFICULT TO OBTAIN DOPPLER PULSES; PER MD SHE WILL COME TO ASSESS PATIENT
--- NOTE | 2016-11-14 22:46 | NUR ---
NSG NOTE: DR. JOE ROSADO NOTIFIED THAT PATIENT IS UNABLE TO TAKE ANY ORAL MEDICATION DUE TO DROWSINESS; ALL ORAL MEDICATION HELD
--- NOTE | 2016-11-14 23:29 | Event Note ---
Event Note Event Note: Situation At 10:30 pm, I received a call from the naurse (Annabel) regarding patient's mental status, she reported that he is very altered and has grabled speech, bilateral lower extremities skin cold, blue and she was unable to obtain peripheral pulse dorsalis pedis on the right foot. Background Mr. Pineda is 85-year-old male with past medical history , Diabetes Mellitus, COPD, previous colon cancer status post bowel resection, previous subarachnoid hemorrhage s/p evacuation, previous endocarditis, hypertension, hyperlipidemia comes in with altered mental status. He was admitted today 11/14/2016 with chief complain of altered mental status under investigation. Initial CT scan head was negative for any acute intracranial pathology however cerebral atrophy and right -sided ventricular catheter was present. On admission, patient was not alert or oriented (per resident note) during history taking, however "he did answer some of the questions, it was difficult to have any conversation with him, he wouldn't follow commands completely and he followed commands intermittently" Assessment I evaluated the patient promptly, vital signs are stable temperature 97.1, pulse rate 67, respiratory rate 20 with saturation 100% on 2 l nasal cannula, blood pressure 148/64 Patient is sleeping comfortably in bed, arousable to verbal stimuli however he didn't open his eyes. Upon questioning him he was only morning and looked tired. Examination of lower extremity: Patient has no socks on, Alps are present, skin over bilateral chins have big spots of hyperpigmentation (mostly chronic), bilateral feet slightly bluish discoloration over the toes. Palpation right foot midly colder than left foot, left foot dorsalis pedis positive, right foot dorsalis pedis negative but posterior tibialis positive, patient responded appropriately to painful stimuli of the bilateral feet Recommendation -Resident and attending are made aware -I don't believe patient's mentation is different from time of admission based on H/P note -We will order arterial ultrasound bilateral stat to rule out peripheral vascular disease -Patient is nothing by mouth with no order for medication with sips of water, the nurse held all of the medication based on this order -We will continue to monitor
[2016-11-14 23:52] VITALS: BP 132/68
--- NOTE | 2016-11-15 07:24 | PN- Housestaff ---
See Addendum Subjective Follow-up For: Altered mental status NAFISA on CKD Tele-Events Since Last Visit: Sinus rhythm HR 79-90 First degree heart block [place] 0.22 Subjective: No acute events overnight. Patient seen and examined this morning. He appears lethargic but is arousable to physical vigorous stimuli. Later in the day, he became more alert and was following commands. Review of Systems Constitutional: Reports: see HPI. Objective Last 24 Hrs of Vital Signs/I&O Vital Signs Date Time Temp Pulse Resp B/P B/P Pulse O2 O2 Flow FiO2 Mean Ox Delivery Rate 11/16 1815 97.6 75 18 118/62 100 11/15 1600 Nasal 2.0L Cannula 11/15 1019 74 130/70 11/15 0816 74 134/58 11/15 0803 96.8 67 20 172/47 99 Nasal 2.0L Cannula 11/15 0800 95 Nasal 2.0L Cannula 11/15 0000 94 Nasal 2.0L Cannula 11/14 2352 98.0 74 20 132/68 98 Nasal Cannula Intake & Output 11/15 1600 11/15 0800 11/15 0000 Intake Total 600 600 150 Output Total 300 Balance 600 600 -150 Intake, IV 600 600 150 Intake, Oral 0 0 Output, Urine 300 Patient 90.265 kg 90.265 kg Weight Weight Estimated Measurement Method Physical Exam General Appearance: Lethargic, Arousable HEENT: Atraumatic, Mucous Membr. moist/pink Neck: Supple Cardiovascular: Regular Rate, Normal S1, Normal S2, No Murmurs, Gallops, Rubs Lungs: Diminished Breath Sounds Abdomen: Soft, No Tenderness, Positive Bowel Sounds Extremities: Changes Consistent with Chronic Venous Stasis on Bilateral Lower Extremities Current Medications: Current Medications Sig/Yasmeen Start time Last Medication Dose Route Stop Time Status Admin Acetaminophen 650 MG Q4P PRN 11/15 0815 AC PO Allopurinol 200 MG DAILY 11/14 183 AC PO Amlodipine Besylate 5 MG DAILY 11/14 183 AC PO Aspirin 81 MG DAILY 11/14 1849 AC PO Atorvastatin Calcium 10 MG 1700 11/15 1700 AC PO Carbidopa/Levodopa 1 TAB TID 11/14 184 AC PO Dextrose/Sodium 1,000 ML Q13H 11/15 0900 AC 11/15 Chloride IV 11/15 2159 1017 Dextrose/Sodium 1,000 ML Q13H 11/14 1900 DC 11/14 Chloride IV 11/15 0759 1936 Escitalopram Oxalate 20 MG DAILY 11/14 185 AC PO Heparin Sodium 5,000 UNIT Q8 11/14 2200 AC 11/15 (Porcine) SC 1344 Insulin Human Regular 4 UNITS .STK-MED ONE 11/15 0651 DC IV 11/15 0652 Insulin Human Regular 6 UNITS .STK-MED ONE 11/15 0114 DC IV 11/15 0115 Insulin Human Regular 0 Q6 11/15 2031 AC 11/15 SC 1756 Isosorbide 60 MG DAILY 11/14 185 AC Mononitrate PO Metoprolol Succinate 25 MG DAILY 11/14 185 AC PO Patient Medication 1 ED .STK-MED ONE 11/15 1358 DC Teaching ED 11/15 135 Last 24 Hrs of Lab/Daniel Results Last 24 Hrs of Labs/Mics: Laboratory Tests 11/15/16 0700: Anion Gap 6, Estimated GFR 41 L, BUN/Creatinine Ratio 16.3, CBC w Diff NO MAN DIFF REQ, RBC 4.16 L, MCV 88.1, MCH 27.9, RDW 16.9 H, MPV 9.6, Gran % 68.5, Lymphocytes % 20.7, Monocytes % 8.1, Eosinophils % 2.4, Basophils % 0.3, Absolute Granulocytes 6.0, Absolute Lymphocytes 1.8, Absolute Monocytes 0.7 H, Absolute Eosinophils 0.2, Absolute Basophils 0, PUBS MCHC 31.7 L BCx (11/14/16): NGTD x2 UCx (11/14/16): Approximately 10,000 colonies/ml of Pseudomonas Orders Radiology Findings: BLE ARTERIAL DOPPLER ULTRASOUND: On the right, there is evidence of vascular occlusive disease involving the SFA with no demonstrable flow but reconstituted popliteal and posterior tibial artery. No flow is seen in the anterior tibial or dorsalis pedis. On the left, low flow is noted in the SFA indicating possible disease. 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 #Altered mental status: Most likely represents delirium secondary to mild dehydration in the setting of recent pneumonia, UTI and NAFISA with possible contributions from medications including levofloxacin and tramadol. Although urine cultures are growing Pseudomonas, this is likely asymptomatic bacteriuria in the absence of fever and leukocytosis. * Neurology and ID following. Appreciate their recs. * EEG pending. * Neurochecks Q4H. * Aspiration and seizure precautions. * Swallow evaluation deferred today due to AMS. Reattempt tomorrow. * Modified barium swallow ordered. * Monitor off antibiotics. * No further neurodiagnostic testing indicated per neuro. * Continue gentle hydration with D5W-1/2 NS @ 75 cc/hr. #NAFISA on CKD stage 3: Cr 1.6 today, improved to baseline after IVF hydration. Likely prerenal in the setting of dehydration. * Continue to monitor lytes and kidney function. * Avoid nephrotoxic medications. #PAD: BLE Doppler arterial ultrasound was performed to evaluate nonpalpable right dorsalis pedis pulse which showed vascular occlusive disease involving the right SFA with no demonstrable flow. * No need to consult vascular surgery given recent evaluation by vascular surgery at the [facility] with no intervention was indicated. #Parkinson's disease: * Continue [id number] Carbidopa/Levodopa 25/250 mg 1 tab PO TID. #Insulin-dependent T2DM: Takes Lantus 8 U SQ QPM and Novolog 12 U SQ TID as outpatient. * Accu-checks and sliding scale Novolin Q6H while NPO. #HTN: * Continue [id number] metoprolol XL 25 mg PO daily, amlodipine 5 mg PO daily. #Gout: * Continue ixyns-[id number] allopurinol 200 mg PO daily. #Depression: * Continue [id number] escitalopram 20 mg PO daily. Diet: NPO DVT PPx: HSQ and ALPs CODE: DNR/DNI Problem List: 1. Altered mental state 2. Acute renal failure superimposed on stage 3 chronic kidney disease 3. Parkinsons disease 4. HTN (hypertension) 5. HLD (hyperlipidemia) 6. Gout 7. Depression 8. Dehydration 9. Delirium 10. PAD (peripheral artery disease) 11. Superficial femoral artery occlusion Pain Ratin Pain Location: N/A Pain Goal: Remain pain free Pain Plan: Tylenol 650 mg PO Q4H PRN for mild pain (scale 1-3) Tomorrow's Labs & Rationales: CBC to monitor WBC count to evaluate for infection BMP to monitor lytes and kidney function in the setting of NAFISA on CKD
[2016-11-15 07:52] LABS: ABSOLUTE BASOPHIL COUNT 0 /CUMM (0.0-0.2); ABSOLUTE EOSINOPHIL COUNT 0.2 /CUMM (0.0-0.7); ABSOLUTE LYMPH COUNT 1.8 /CUMM (1.2-3.4); ABSOLUTE MONOCYTE COUNT 0.7 /CUMM (0.10-0.60); BASOPHIL % 0.3 % (0.0-2.0); EOSINOPHIL % 2.4 % (0-5); GRANULOCYTE % 68.5 % (42.2-75.2); HEMATOCRIT 36.6 % (42-52); MEAN CORPUSCULAR HGB 27.9 PG (27.0-31.0); MEAN CORPUSCULAR HGB CONC 31.7 G/DL (33.0-37.0); MEAN CORPUSCULAR VOLUME 88.1 FL (80.0-94.0); MEAN PLATELET VOLUME 9.6 FL (7.4-10.4); PLATELET COUNT 161 /CUMM (130-400); RBC DISTRIBUTION WIDTH 16.9 % (11.5-14.5); RED BLOOD CELL CT 4.16 /CUMM (4.70-6.10); WHITE BLOOD CELL COUNT 8.7 /CUMM (4.8-10.8)
[2016-11-15 08:03] VITALS: BP 172/47
[2016-11-15 08:16] VITALS: BP 134/58
--- NOTE | 2016-11-15 10:20 | ULTRASOUND REPORT ---
EXAMINATION: NONINVASIVE ASSESSMENT OF THE ARTERIES OF BOTH LOWER EXTREMITIES INTERPRETING VASCULAR \T\ INTERVENTIONAL RADIOLOGIST: Calderon Hernandez MD CLINICAL INFORMATION: Right: Lower extremity TECHNIQUE: Bilateral lower extremity duplex ultrasound was performed with velocity measurements and waveform analysis in the common femoral arteries, profunda femoris arteries, proximal mid and distal superficial femoral arteries, popliteal arteries and tibial vessels. This study was performed only at rest. COMPARISON: None FINDINGS: velocities in cm/sec and phasicity as well as the presence of plaque are reported below RIGHT LEG: common femoral: 170 profunda femoris: 111 proximal SFA: None demonstrable mid SFA: None demonstrable distal SFA: None demonstrable popliteal: 62 Posterior tibial: 65 Anterior tibial: None demonstrable Dorsalis pedis: None demonstrable LEFT LEG: common femoral: 141 profunda femoris: 151 proximal SFA: 35 mid SFA: 17 distal SFA: 42 popliteal: 38 Posterior tibial: 58 Anterior tibial: 75 Dorsalis pedis: 37 IMPRESSION: On the right, there is evidence of vascular occlusive disease involving the SFA with no demonstrable flow but reconstituted popliteal and posterior tibial artery. No flow is seen in the anterior tibial or dorsalis pedis. On the left, low flow is noted in the SFA indicating possible disease.
--- NOTE | 2016-11-15 11:24 | Cons- Infect Disease ---
General Information and HPI Consulting Request Date of Consult: 11/15/16 Requested By: RAMON SYLVESTER MD Reason for Consult: Rule out UTI Source of Information: patient, family, friend Exam Limitations: confusion, dementia History of Present Illness: This is an 85-year-old man, halfway resident, with Parkinson's disease, dementia, status post ADULT EDUCATION MANAGER shunt for subarachnoid bleed following evacuation, colon cancer status post resection, diabetes, COPD, endocarditis, peripheral vascular disease, BPH and gout, begun on Tramadol one month prior to admission for back pain and Levaquin 2 weeks prior to admission after diagnosed with pneumonia, with improvement in his congestion, and with a urine culture sent 5 days prior to admission positive for 10,000 colonies of Pseudomonas, apparently scheduled for a swallowing test at the [facility] next week, admitted on November 14 with increasing confusion, lethargy and intermittent agitation. On admission he was afebrile. Laboratory data revealed a white blood cell count of 12,000, BUN/ creatinine 35 and 2.0, with normal liver enzymes, INR normal, ABG 7.42/47/93 on 2 L. Urinalysis rare RBC/greater than 75 WBCs. Chest x-ray negative. CT of the head no acute process. He was given fluids and followed off antibiotics. He has remained afebrile overnight. He has apparently improved this morning with increased alertness and decreased agitation. He is unable to provide any history secondary to his lethargy and baseline dementia. Allergies/Medications Allergies: Coded Allergies: cefadroxil (From DURICEF) (UNKNOWN 11/14/16) cefuroxime (From CEFTIN) (UNKNOWN 11/14/16) donepezil (From ARICEPT) (UNKNOWN 11/14/16) rivastigmine (From EXELON) (UNKNOWN 11/14/16) Home Med List: Allopurinol 100 MG TABLET 2 TAB PO DAILY UNKNOWN (Reported) Amlodipine Besylate 5 MG TABLET 1 TAB PO DAILY HEART (Reported) Amoxicillin 500 MG TABLET 1 TAB PO ONCE DENTAL APPT (Reported) Aspirin (Aspirin*) 81 MG TAB.CHEW 1 TAB PO DAILY HEART HEALTH (Reported) Atorvastatin Calcium 10 MG TABLET 1 TAB PO 1700 CHOLESTEROL (Reported) Carbidopa/Levodopa (Carbidopa-Levodopa 25-250 Tab) 25 MG-250 MG TABLET 1 TAB PO TID PARKINSONS (Reported) Cranberry Fruit (Cranberry) (Unknown Strength) TABLET (Unknown Dose) PO BID SUPPLEMENT (Reported) Escitalopram Oxalate 20 MG TABLET 1 TAB PO DAILY MENTAL HEALTH (Reported) Fish Oil/Dha/Epa (Fish Oil 1,200 MG Fish Oil) 1,200 MG-144 MG-216 MG CAPSULE 1 CAP PO DAILY SUPPLEMENT (Reported) Fluticasone/Salmeterol (Advair 250-50 Diskus) 250 MCG-50 MCG/DOSE BLST.W.DEV 1 PUF INH BID BREATHING PROBLEMS (Reported) Furosemide (Lasix) 40 MG TABLET 1 TAB PO DAILY WATER RETENTION (Reported) Insulin Aspart, Recombinant (Novolog Flexpen) 100 UNIT/ML INSULN.PEN 12 U SC TID DIABETES (Reported) Insulin Glargine,Hum.rec.anlog (Lantus Solostar) 100 UNIT/ML (3 ML) INSULN.PEN 8 UNIT SC QPM DIABETES (Reported) Isosorbide Mononitrate (Isosorbide Mononitrate ER) 60 MG TAB.ER.24H 1 TAB PO DAILY HEART (Reported) Lactobacillus Acidophilus (Acidophilus) 1 EACH CAPSULE 1 CAP PO DAILY GI ( Reported) Latanoprost 0.005 % DROPS 1 GTT OPH QPM EYE (Reported) Lidocaine 5 % ADH..PATCH 1 PAT TOP DAILY PAIN (Reported) Metoprolol Succ XL (Toprol XL) 25 MG TAB 1 TAB PO DAILY HEART (Reported) Multivitamin (Daily Multiple Vitamin) 1 EACH TABLET 1 TAB PO DAILY VITAMIN SUPPORT (Reported) Tramadol HCl 50 MG TABLET 0.5 TAB PO BID PAIN (Reported) Past History Travel History Traveled to [place] past 21 day No Medical History Neurological: Parkinson's disease, TIA, subarachnoid hemorrhage Cardiovascular: endocarditis RBBB Respiratory: COPD Renal: benign prost hyperplasia Musculoskeletal: gout Endocrine: diabetes Cancer(s): colon/rectal cancer, skin cancer History of MRSA: No History of VRE: No History of CDIFF: No Isolation History: Standard Surgical History Surgical History: appendectomy, colon resection, evacuation of subarachnoid hemorrhage right ADULT EDUCATION MANAGER shunt placement Psychosocial History Where Do You Live? Care Home Facility Smoking Status: Former Smoker Living Will? yes Functional Ability ADLs Needs Assist: dressing, eating, toileting, bathing. Ambulation: non-ambulatory IADLs Needs Assist: shopping, housework, finances, food prep, telephone, transportation, medication admin. Review of Systems Comments Unobtainable Exam & Diagnostic Data Last 24 Hrs of Vital Signs/I&O Vital Signs Date Time Temp Pulse Resp B/P B/P Pulse O2 O2 Flow FiO2 Mean Ox Delivery Rate 11/15 1019 74 130/70 11/15 0816 74 134/58 11/15 0803 96.8 67 20 172/47 99 Nasal 2.0L Cannula 11/15 0800 95 Nasal 2.0L Cannula 11/15 0000 94 Nasal 2.0L Cannula 11/14 2352 98.0 74 20 132/68 98 Nasal Cannula 11/14 1930 97.1 67 20 148/64 100 Nasal 2.0L Cannula 11/14 1915 Nasal 2.0L Cannula 11/14 1817 96.7 70 20 168/69 92 Nasal 2.0L Cannula 11/14 1720 97.0 84 22 143/66 93 Nasal 2.0L Cannula 11/14 1656 97.0 80 20 150/70 94 Nasal 2.0L Cannula 11/14 1601 97.0 74 20 153/65 94 Nasal 2.0L Cannula 11/14 1519 98.7 70 22 134/62 94 Nasal 2.0L Cannula 11/14 1452 97 Room Air 11/14 1400 96.4 74 20 134/56 98 Room Air Intake & Output 11/15 1600 11/15 0800 11/15 0000 Intake Total 600 150 Output Total 300 Balance 600 -150 Intake, IV 600 150 Intake, Oral 0 Output, Urine 300 Patient 199 lb Weight Weight Estimated Measurement Method Physical Exam Other Physical Findings: He is lethargic but arousable and able to follow commands, in no acute distress. He is afebrile. Skin reveals several skin lesions status post skin cancer. HEENT exam is negative. Neck is supple with no adenopathy. Lungs decreased breath sounds bilaterally. Heart regular rhythm with no murmur. Abdomen is soft, nontender with positive bowel sounds. Back no CVA tenderness. Extremities chronic venous stasis changes both lower extremities; decreased pulses both feet. Neuro is without focality. Last 24 Hours of Lab Results: Laboratory Tests 11/15 11/14 0700 1645 Chemistry Sodium (137 - 145 mmol/L) 138 Potassium (3.5 - 5.1 mmol/L) 4.4 Chloride (98 - 107 mmol/L) 97 L Carbon Dioxide (22 - 30 mmol/L) 35 H Anion Gap (5 - 16) 6 BUN (9 - 20 mg/dL) 26 H Creatinine (0.7 - 1.2 mg/dL) 1.6 H Estimated GFR (>60 ml/min) 41 L BUN/Creatinine Ratio (7 - 25 %) 16.3 Hematology CBC w Diff NO MAN DIFF REQ WBC (4.8 - 10.8 /CUMM) 8.7 RBC (4.70 - 6.10 /CUMM) 4.16 L Hgb (14.0 - 18.0 G/DL) 11.6 L Hct (42 - 52 %) 36.6 L MCV (80.0 - 94.0 FL) 88.1 MCH (27.0 - 31.0 PG) 27.9 RDW (11.5 - 14.5 %) 16.9 H Plt Count (130 - 400 /CUMM) 161 MPV (7.4 - 10.4 FL) 9.6 Gran % (42.2 - 75.2 %) 68.5 Lymphocytes % (20.5 - 51.1 %) 20.7 Monocytes % (1.7 - 9.3 %) 8.1 Eosinophils % (0 - 5 %) 2.4 Basophils % (0.0 - 2.0 %) 0.3 Absolute Granulocytes (1.4 - 6.5 /CUMM) 6.0 Absolute Lymphocytes (1.2 - 3.4 /CUMM) 1.8 Absolute Monocytes (0.10 - 0.60 /CUMM) 0.7 H Absolute Eosinophils (0.0 - 0.7 /CUMM) 0.2 Absolute Basophils (0.0 - 0.2 /CUMM) 0 PUBS MCHC (33.0 - 37.0 G/DL) 31.7 L Toxicology Urine Opiates Screen (>2000 NG/ML) 137.00 Methadone Screen (>300 NG/ML) 62 Barbiturate Screen (>200 NG/ML) < 60 Ur Phencyclidine Scrn (>25 NG/ML) < 6.00 Amphetamines Screen (>1000 NG/ML) < 100 U Benzodiazepines Scrn (>200 NG/ML) < 85 Urine Cocaine Screen (>300 NG/ML) < 50 Urine Cannabis Screen (>50 NG/ML) < 5.00 Urines Urinalysis LIGHT H Urine Color (YEL,AMB,STR) YEL Urine Clarity (CLEAR) CLDY H Urine pH (5.0 - 8.0) 6.5 Ur Specific [place] (1.001 - 1.035) 1.010 Urine Protein (NEG,<30 MG/DL) NEG Urine Ketones (NEG) NEG Urine Nitrite (NEG) POS H Urine Bilirubin (NEG) NEG Urine Urobilinogen (0.1 - 1.0 EU/dl) 0.2 Ur Leukocyte Esterase (NEG) LARGE H Ur Microscopic SEDIMENT EXAMINED Urine RBC (0 - 5 /HPF) RARE Urine WBC (0 - 2 /HPF) > 75 H Ur Epithelial Cells (NONE,FEW) RARE Urine Bacteria (NEG/NONE) MOD H Urine Mucus (FEW,NONE) RARE Micro UA Comment Urine Hemoglobin (NEG) TRACE-INTACT H Urine Glucose (N MG/DL) NEG 11/14 11/14 1540 1439 Blood Gas pH (7.35 - 7.45 PH) 7.42 pCO2 (35 - 45 TORR) 47 H pO2 (80 - 100 TORR) 93 HCO3 (21 - 28 MEQ/L) 30 H ABG O2 Sat (Measured) (>96.0 %) 96.0 P-50 (Temp Corrected) N Carboxyhemoglobin (1.5 - 5.0 %) 0.5 L O2 Concentration % 2L Temperature (97.0 - 100.0 FARH) 98.7 O2 Delivery Method NC Chemistry Sodium (137 - 145 mmol/L) 140 Potassium (3.5 - 5.1 mmol/L) 4.6 Chloride (98 - 107 mmol/L) 95 L Carbon Dioxide (22 - 30 mmol/L) 33 H Anion Gap (5 - 16) 12 BUN (9 - 20 mg/dL) 35 H Creatinine (0.7 - 1.2 mg/dL) 2.0 H Estimated GFR (>60 ml/min) 32 L BUN/Creatinine Ratio (7 - 25 %) 17.5 Glucose (65 - 99 mg/dL) 82 Calcium (8.4 - 10.2 mg/dL) 8.4 Magnesium (1.6 - 2.3 mg/dL) 2.0 Total Bilirubin (0.2 - 1.3 mg/dL) 0.6 AST (17 - 59 U/L) 19 ALT (21 - 72 U/L) 28 Alkaline Phosphatase (< 127 U/L) 86 Troponin I (<0.11 ng/ml) 0.02 Total Protein (6.3 - 8.2 g/dL) 5.8 L Albumin (3.5 - 5.0 g/dL) 3.2 L Globulin (1.9 - 4.2 gm/dL) 2.6 Albumin/Globulin Ratio (1.1 - 2.2 %) 1.2 Prolactin (3.7 - 17.9 ng/mL) 6.3 Coagulation PT (9.4 - 12.5 SEC) 11.6 INR (0.90 - 1.17) 1.11 Hematology CBC w Diff NO MAN DIFF REQ WBC (4.8 - 10.8 /CUMM) 11.9 H RBC (4.70 - 6.10 /CUMM) 4.21 L Hgb (14.0 - 18.0 G/DL) 11.7 L Hct (42 - 52 %) 36.6 L MCV (80.0 - 94.0 FL) 87.0 MCH (27.0 - 31.0 PG) 27.8 RDW (11.5 - 14.5 %) 17.0 H Plt Count (130 - 400 /CUMM) 177 MPV (7.4 - 10.4 FL) 9.5 Gran % (42.2 - 75.2 %) 71.3 Lymphocytes % (20.5 - 51.1 %) 17.9 L Monocytes % (1.7 - 9.3 %) 8.2 Eosinophils % (0 - 5 %) 2.2 Basophils % (0.0 - 2.0 %) 0.4 Absolute Granulocytes (1.4 - 6.5 /CUMM) 8.5 H Absolute Lymphocytes (1.2 - 3.4 /CUMM) 2.1 Absolute Monocytes (0.10 - 0.60 /CUMM) 1.0 H Absolute Eosinophils (0.0 - 0.7 /CUMM) 0.3 Absolute Basophils (0.0 - 0.2 /CUMM) 0 PUBS MCHC (33.0 - 37.0 G/DL) 32.0 L Miscellaneous Phlebotomy Draw Site RIGHT RADIAL Last 24 Hours of Daniel Results: Blood cultures November 14 negative Urine culture November 14 approximately 10,000 colonies of Pseudomonas Diagnostic Data Recent Imaging Findings: Chest x-ray November [address] of the head November 14 reveals a right-sided ventricular catheter with no acute process Bilateral arterial Dopplers reveal vascular occlusive disease involving the SFA on the right with no demonstrable flow but with reconstituted popliteal posterior tibial arteries, with no flow in the anterior tibial or dorsalis pedis ; on the left low flow is noted in the SFA Assessment/Plan Assessment/Plan Impression: This is an 85-year-old man, halfway resident, with a history of Parkinson's disease, dementia, status post ADULT EDUCATION MANAGER shunt for subarachnoid bleed following evacuation, colon cancer status post resection, diabetes, COPD, endocarditis, peripheral vascular disease, BPH and gout admitted on November 14 with increased lethargy and altered mental status following a ten-day course of Levaquin for presumed pneumonia with a positive urine culture for Pseudomonas, found to be afebrile with a mild leukocytosis, which appears to have resolved with hydration. Given his mental status it is not possible to elicit any symptoms of a urinary tract infection; however, as he is afebrile with white blood cell count now normal, suspect that this represents asymptomatic bacteriuria and that it does not require treatment. The etiology of his altered mental status is unclear. He was dehydrated, which could have been contributing. Other possible causes including medications, for example the Levaquin or Tramadol. As he appears to be stable he can continue to be followed off antibiotics. He was scheduled for a swallowing evaluation at the [facility], and this can be performed here if he is able to cooperate. He was apparently evaluated recently at the [facility] by vascular surgery, with no intervention recommended. Suggestion: 1. Await bedside swallowing evaluation 2. Modified barium swallow if/when able 3. Continue to follow off antibiotics Consult Acknowledgment - Thank you for your consult request.
--- NOTE | 2016-11-15 12:25 | Cons- Neurology ---
General Information and HPI Consulting Request Date of Consult: 11/15/16 Requested By: RAMON SYLVESTER MD History of Present Illness: 85-year-old male admitted from an extended care facility due to a 5 day history of altered mental status. History is obtained entirely from the chart as the patient is grossly somnolent and confused. At baseline, the patient is demented and dependent for eating, dressing and toileting. He has a past neurological history of subarachnoid hemorrhage which apparently was evacuated and treated with a ventriculoperitoneal shunt. He also has a history of Parkinson's disease for which she is on Sinemet. The patient was diagnosed with pneumonia on November 01 and treated with a 10 day course of Levaquin. On November 10 urine culture was positive for Pseudomonas. There has been no trauma. He is currently afebrile. CAT scan of the brain showed a hypodensity in the right frontal region, the presence of a right ventricular catheter tip and atrophy. There were no acute abnormalities. Allergies/Medications Allergies: Coded Allergies: cefadroxil (From DURICEF) (UNKNOWN 11/14/16) cefuroxime (From CEFTIN) (UNKNOWN 11/14/16) donepezil (From ARICEPT) (UNKNOWN 11/14/16) rivastigmine (From EXELON) (UNKNOWN 11/14/16) Home Med List: Allopurinol 100 MG TABLET 2 TAB PO DAILY UNKNOWN (Reported) Amlodipine Besylate 5 MG TABLET 1 TAB PO DAILY HEART (Reported) Amoxicillin 500 MG TABLET 1 TAB PO ONCE DENTAL APPT (Reported) Aspirin (Aspirin*) 81 MG TAB.CHEW 1 TAB PO DAILY HEART HEALTH (Reported) Atorvastatin Calcium 10 MG TABLET 1 TAB PO 1700 CHOLESTEROL (Reported) Carbidopa/Levodopa (Carbidopa-Levodopa 25-250 Tab) 25 MG-250 MG TABLET 1 TAB PO TID PARKINSONS (Reported) Cranberry Fruit (Cranberry) (Unknown Strength) TABLET (Unknown Dose) PO BID SUPPLEMENT (Reported) Escitalopram Oxalate 20 MG TABLET 1 TAB PO DAILY MENTAL HEALTH (Reported) Fish Oil/Dha/Epa (Fish Oil 1,200 MG Fish Oil) 1,200 MG-144 MG-216 MG CAPSULE 1 CAP PO DAILY SUPPLEMENT (Reported) Fluticasone/Salmeterol (Advair 250-50 Diskus) 250 MCG-50 MCG/DOSE BLST.W.DEV 1 PUF INH BID BREATHING PROBLEMS (Reported) Furosemide (Lasix) 40 MG TABLET 1 TAB PO DAILY WATER RETENTION (Reported) Insulin Aspart, Recombinant (Novolog Flexpen) 100 UNIT/ML INSULN.PEN 12 U SC TID DIABETES (Reported) Insulin Glargine,Hum.rec.anlog (Lantus Solostar) 100 UNIT/ML (3 ML) INSULN.PEN 8 UNIT SC QPM DIABETES (Reported) Isosorbide Mononitrate (Isosorbide Mononitrate ER) 60 MG TAB.ER.24H 1 TAB PO DAILY HEART (Reported) Lactobacillus Acidophilus (Acidophilus) 1 EACH CAPSULE 1 CAP PO DAILY GI ( Reported) Latanoprost 0.005 % DROPS 1 GTT OPH QPM EYE (Reported) Lidocaine 5 % ADH..PATCH 1 PAT TOP DAILY PAIN (Reported) Metoprolol Succ XL (Toprol XL) 25 MG TAB 1 TAB PO DAILY HEART (Reported) Multivitamin (Daily Multiple Vitamin) 1 EACH TABLET 1 TAB PO DAILY VITAMIN SUPPORT (Reported) Tramadol HCl 50 MG TABLET 0.5 TAB PO BID PAIN (Reported) Review of Systems Review of Systems: Unobtainable due to the patient's mental status Past History Travel History Traveled to [place] past 21 day No Medical History Neurological: Parkinson's disease, TIA, subarachnoid hemorrhage Cardiovascular: endocarditis RBBB Respiratory: COPD Renal: benign prost hyperplasia Musculoskeletal: gout Endocrine: diabetes Cancer(s): colon/rectal cancer, skin cancer Surgical History Surgical History: appendectomy, colon resection, evacuation of subarachnoid hemorrhage right CELL REPAIRER shunt placement Psychosocial History Where Do You Live? [facility] Smoking Status: Former Smoker Living Will? yes Functional Ability ADLs Needs Assist: dressing, eating, toileting, bathing. Ambulation: non-ambulatory IADLs Needs Assist: shopping, housework, finances, food prep, telephone, transportation, medication admin. Exam & Diagnostic Data Vital Signs and I&O Vital Signs Date Time Temp Pulse Resp B/P B/P Pulse O2 O2 Flow FiO2 Mean Ox Delivery Rate 11/15 1019 74 130/70 11/15 0816 74 134/58 11/15 0803 96.8 67 20 172/47 99 Nasal 2.0L Cannula 11/15 0800 95 Nasal 2.0L Cannula 11/15 0000 94 Nasal 2.0L Cannula 11/14 2352 98.0 74 20 132/68 98 Nasal Cannula 05/03 1930 97.1 67 20 148/64 100 Nasal 2.0L Cannula 05/03 1915 Nasal 2.0L Cannula 05/03 1817 96.7 70 20 168/69 92 Nasal 2.0L Cannula 05/03 1720 97.0 84 22 143/66 93 Nasal 2.0L Cannula 05/03 1656 97.0 80 20 150/70 94 Nasal 2.0L Cannula 05/03 1601 97.0 74 20 153/65 94 Nasal 2.0L Cannula 05/03 1519 98.7 70 22 134/62 94 Nasal 2.0L Cannula 05/03 1452 97 Room Air 05/ 1400 96.4 74 20 134/56 98 Room Air Intake & Output 11/15 1600 / 0800 05 0000 Intake Total 600 150 Output Total 300 Balance 600 -150 Intake, IV 600 150 Intake, Oral 0 Output, Urine 300 Patient 199 lb Weight Weight Estimated Measurement Method Elderly white male, somnolent though arousable. He needed persistent prodding to keep his eyes open. He was unable to tell me his location, the month or the name of the president. The head was atraumatic. Pupils were equal. Extraocular movements were full. Face was symmetric. There was no drift of the upper extremities. There was no gross lateralizing weakness. Deep tendon reflexes were diffusely hypoactive. Plantar responses were flexor. The gait could not be evaluated. 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 #3 status post subarachnoid hemorrhage and placement of a ventriculoperitoneal shunt. CT shows no acute abnormalities. #4 reported Parkinson's disease although currently there is no objective evidence of resting tremor or rigidity Recommendations: From our neurological standpoint we would merely continue gentle hydration, his current antiparkinsonian medications, DVT precautions as he is relatively immobile and ID follow-up. Should have swallow evaluation prior to feeding him. No further neurodiagnostic studies are anticipated. Please feel free to call with any further questions. Consult Acknowledgment - Thank you for your consult request.
--- NOTE | 2016-11-15 14:51 | PN- Student ---
Subjective Subjective: Medical Student Daily Progress Note: Amilcar Pineda is an 85yo M with PMH of Parkinson's disease, TIA, COPD, and insulin dependent type 2 DM, who was admitted on 11/14 for 5 day history of AMS of unclear etiology. Overnight, the nursing staff alerted advanced manufacturing consultant residents of increasing AMS, garbled speech, and blue discoloration and cool to touch BLE with loss of DP on right foot. Examination revealed mental status consistent with that of admission. BLE arterial doppler US were ordered. This morning, the patient is sleeping. He is arousable to physical stimuli. He would not follow commands or answer any questions for me this morning. Current Medications Sig/Yasmeen Start time Last Medication Dose Route Stop Time Status Admin Acetaminophen 650 MG Q4P PRN 11/15 0815 AC PO Allopurinol 200 MG DAILY 11/14 183 AC PO Amlodipine Besylate 5 MG DAILY 11/14 1836 AC PO Aspirin 81 MG DAILY 11/14 1849 AC PO Atorvastatin Calcium 10 MG 1700 11/15 1700 AC PO Carbidopa/Levodopa 1 TAB TID 11/14 1849 AC PO Dextrose 12.5 GM ONCE ONE 11/14 1900 DC 11/14 IV 11/14 1901 1902 Dextrose/Sodium 1,000 ML Q13H 11/15 0900 AC 11/15 Chloride IV 11/15 2159 1017 Dextrose/Sodium 1,000 ML Q13H 11/14 1900 DC / Chloride IV 11/15 0759 1936 Escitalopram Oxalate 20 MG DAILY 11/14 1850 AC PO Gentamicin Sulfate 100 MG ONE ONE 11/14 1645 CAN Dextrose/Water 100 ML IV 11/14 1714 Heparin Sodium 5,000 UNIT Q8 11/14 2200 AC 11/15 (Porcine) SC 1344 Insulin Human Regular 6 UNITS .STK-MED ONE 11/15 0114 DC IV 11/15 0115 Insulin Human Regular 0 Q6 11/14 2032 AC 11/15 SC 1152 Isosorbide 60 MG DAILY 11/14 185 AC Mononitrate PO Metoprolol Succinate 25 MG DAILY 11/14 1852 AC PO Patient Medication 1 ED .STK-MED ONE 11/15 1358 DC Teaching ED 11/15 1359 Sodium Chloride 500 ML BOLUS ONE 11/14 1530 DC 11/14 IV 11/14 1629 1600 Objective Objective: Vital Signs Date Time Temp Pulse Resp B/P B/P Pulse O2 O2 Flow FiO2 Mean Ox Delivery Rate 11/15 1019 74 130/70 11/15 0816 74 134/58 11/15 0803 96.8 67 20 172/47 99 Nasal 2.0L Cannula 11/15 0800 95 Nasal 2.0L Cannula 11/15 0000 94 Nasal 2.0L Cannula 11/14 2352 98.0 74 20 132/68 98 Nasal Cannula 11/14 1930 97.1 67 20 148/64 100 Nasal 2.0L Cannula 11/14 1915 Nasal 2.0L Cannula 11/14 1817 96.7 70 20 168/69 92 Nasal 2.0L Cannula 11/14 1720 97.0 84 22 143/66 93 Nasal 2.0L Cannula 11/14 1656 97.0 80 20 150/70 94 Nasal 2.0L Cannula 11/14 1601 97.0 74 20 153/65 94 Nasal 2.0L Cannula 11/14 1519 98.7 70 22 134/62 94 Nasal 2.0L Cannula 11/14 1452 97 Room Air Intake & Output 11/15 1600 11/15 0800 05 0000 Intake Total 600 150 Output Total 300 Balance 600 -150 Intake, IV 600 150 Intake, Oral 0 Output, Urine 300 Patient 199 lb Weight Weight Estimated Measurement Method Telemetry Monitoring: NSR with first degree HB, rate 64 - 90 bpm General: somnolent Neuro: arousable to physical stimuli. will not follow commands or communicate at this time. HEENT: atraumatic. dry mucosa. Neck: supple, no lymphadenopathy. CV: RRR, no murmurs Pulmonary: clear, but diminished GI: abdomen soft, non-tender. bowel sounds present Extremities: BLE cold, DP not palpable on right. Results Results: Laboratory Tests 11/15/16 0700: Anion Gap 6, Estimated GFR 41 L, BUN/Creatinine Ratio 16.3, CBC w Diff NO MAN DIFF REQ, RBC 4.16 L, MCV 88.1, MCH 27.9, RDW 16.9 H, MPV 9.6, Gran % 68.5, Lymphocytes % 20.7, Monocytes % 8.1, Eosinophils % 2.4, Basophils % 0.3, Absolute Granulocytes 6.0, Absolute Lymphocytes 1.8, Absolute Monocytes 0.7 H, Absolute Eosinophils 0.2, Absolute Basophils 0, PUBS MCHC 31.7 L BLE arterial duplex 11/14: IMPRESSION: On the right, there is evidence of vascular occlusive disease involving the SFA with no demonstrable flow but reconstituted popliteal and posterior tibial artery. No flow is seen in the anterior tibial or dorsalis pedis. On the left, low flow is noted in the SFA indicating possible disease. Assessment/Plan Assessment: Amilcar Pineda is an 85yo M with PMH of Parkinson's disease, TIA, COPD, and insulin dependent type 2 DM, who was admitted on 11/14 for 5 day history of AMS of unclear etiology Plan: Altered mental Status: altered at baseline per [facility]. Waxing and waning in nature per physical exam findings. Unlikely to be d/t CVA/TIA or current infections, per neuro/ID. Most likely related to dehydration/NAFISA or recent infection requiring antibiotics superimposed on underlying dementia. * Neuro consult and recommendations * q4h neuro checks * seizure precautions * EEG * telemetry monitoring Arterial Disease of BLE: BLE cold on admission, with blue discoloration. Right DP was appreciable in ER, but was lost overnight. Arterial duplex showing no flow in right DP or PT, with severe disease of SFA. LLE not as advanced. * Monitor pulses * DVT prophylaxis * Further workup deferred d/t previous vascular surgery evaluation at the [facility] Parkinson's disease: On carbidopa/levodopa. Confused and non-ambulatory at baseline. * continue carbidopa/levodopa COPD: recent treatment for pneumonia, admission CXR was negative. diminished breath sounds * continue outpatient inhaler Insulin dependent type 2 DM: on novolog 12u TID and Lantus 8u at night. Is currently NPO * continue SSI while NPO ?cardiac history: medication list compatible with cardiac history, but records at [facility]. * continue outpatient medication regimen NAFISA on CKD: BUN and Cr elevated slightly above baseline on admission, likely 2/2 dehydration. Has improved with gentle IVF resuscitation * Continue to monitor daily BMP * Gentle IVF resuscitation pending swallow eval * Switch to po diet after swallow study Asymptomatic Bacteriuria: culture on 11/10 growing [id number] colonies of Pseudomonas, resistant to Ciprofloxacin. * ID consult and recommendations * No abx at present Code Status: DNR/DNI NPO status pending swallow evaluation DVT prophylaxis: HSQ, ALPs
[2016-11-15 18:16] VITALS: BP 118/62
[2016-11-15 22:17] VITALS: BP 112/60
--- NOTE | 2016-11-16 07:05 | PN- Housestaff ---
See Addendum Subjective Follow-up For: Altered mental status NAFISA on CKD Tele-Events Since Last Visit: Sinus rhythm HR 63-79 No events Subjective: No acute events overnight. Patient seen and examined this morning. He appears much more alert and responsive today. He remains confused and is oriented to name only. He offers no complaints. Review of Systems Constitutional: Reports: see HPI. Objective Last 24 Hrs of Vital Signs/I&O Vital Signs Date Time Temp Pulse Resp B/P B/P Pulse O2 O2 Flow FiO2 Mean Ox Delivery Rate 11/16 1639 98.1 67 18 120/70 97 Nasal 2.0L Cannula 11/16 0820 97.9 68 18 99 Nasal 2.0L Cannula 11/16 0800 Nasal 2.0L Cannula 11/16 0000 Nasal 2.0L Cannula 11/15 2217 98.0 62 18 112/60 97 Nasal Cannula 11/15 1816 97.6 75 18 118/62 100 Intake & Output 11/16 1600 11/16 0800 11/16 0000 Intake Total 880 425 600 Output Total Balance 880 425 600 Intake, IV 400 425 600 Intake, Oral 480 Number 2 1 Bowel Movements Physical Exam General Appearance: Alert, Cooperative, No Acute Distress, Oriented to Name Only HEENT: Atraumatic, Mucous Membr. moist/pink Cardiovascular: Regular Rate, Normal S1, Normal S2, No Murmurs, Gallops, Rubs Lungs: Diminished Breath Sounds Extremities: No Clubbing, No Cyanosis, No Edema Current Medications: Current Medications Sig/Yasmeen Start time Last Medication Dose Route Stop Time Status Admin Acetaminophen 650 MG Q4P PRN 11/15 0815 AC PO Allopurinol 200 MG DAILY 11/14 1836 AC PO Amlodipine Besylate 5 MG DAILY 11/14 1836 AC PO Aspirin 81 MG DAILY 11/14 1849 AC PO Atorvastatin Calcium 10 MG 1700 11/15 1700 AC PO Carbidopa/Levodopa 1 TAB TID 11/14 1849 AC PO Dextrose/Sodium 1,000 ML Q20H 11/16 0145 AC 11/16 Chloride IV 0138 Dextrose/Sodium 1,000 ML Q13H 11/15 0900 DC / Chloride IV 11/15 2159 1017 Escitalopram Oxalate 20 MG DAILY 11/14 1850 AC PO Heparin Sodium 5,000 UNIT Q8 11/14 2200 AC 11/16 (Porcine) SC 0647 Insulin Human Regular 4 UNITS .[facility] 11/15 1755 DC IV 11/16 1755 Insulin Human Regular 0 Q6 11/15 2031 AC 11/16 SC 1216 Isosorbide 60 MG DAILY 11/14 1850 AC Mononitrate PO Metoprolol Succinate 25 MG DAILY 11/15 1851 AC PO Last 24 Hrs of Lab/Daniel Results Last 24 Hrs of Labs/Mics: Laboratory Tests 11/16/16 0654: Anion Gap 8, Estimated GFR 58 L, BUN/Creatinine Ratio 15.8, CBC w Diff NO MAN DIFF REQ, RBC 4.60 L, MCV 88.2, MCH 27.8, RDW 16.7 H, MPV 9.6, Gran % 68.1, Lymphocytes % 19.8 L, Monocytes % 8.0, Eosinophils % 3.6, Basophils % 0.5, Absolute Granulocytes 6.4, Absolute Lymphocytes 1.9, Absolute Monocytes 0.8 H, Absolute Eosinophils 0.3, Absolute Basophils 0, PUBS MCHC 31.5 L UCx (11/14/16): Approximately 30,000 colonies/ml of Pseudomonas resistant to ciprofloxacin Orders Radiology Findings: MODIFIED BARIUM SWALLOW: No evidence of aspiration or penetration. Assessment/Plan Assessment: 85 y/o M with PMHx of Parkinson's disease, subarachnoid hemorrhage s/p evacuation and placement of right [employer] shunt and colon cancer s/p resection who presents with altered mental status. #Altered mental status: Most likely represents delirium secondary to mild dehydration in the setting of recent pneumonia, UTI and NAFISA with possible contributions from medications including levofloxacin and tramadol. Although urine cultures are growing Pseudomonas, this is likely asymptomatic bacteriuria in the absence of fever and leukocytosis. Mental status improved today and patient appears to be back to baseline. Modified barium swallow study with no evidence of aspiration or penetration. * ID following. Appreciate their recs. * OK to discontinue quality assurance monitor body given no evidence of arrhythmias. * Continue to monitor off antibiotics. * Start puree and nectar thick liquids diet per speech therapy recommendations. * Continue D5W1/2NS @ 50 cc/hr for now. * Anticipated discharge to SNF tomorrow if patient demonstrates good PO intake. #NAFISA on CKD stage 3: Cr further improved to 1.2 today with IVF hydration. Likely prerenal in the setting of dehydration. * Continue to monitor lytes and kidney function. * Avoid nephrotoxic medications. #PAD: BLE Doppler arterial ultrasound was performed to evaluate nonpalpable right dorsalis pedis pulse which showed vascular occlusive disease involving the right SFA with no demonstrable flow. * No need to consult vascular surgery given recent evaluation by vascular surgery at the [facility] with no intervention was indicated. #Parkinson's disease: * Continue [id number]-[id number] Carbidopa/Levodopa 25/250 mg 1 tab PO TID. #Insulin-dependent T2DM: Takes Lantus 8 U SQ QPM and Novolog 12 U SQ TID as outpatient. * Accu-checks and sliding scale Novolin Q6H while NPO. #HTN: * Continue fojpe-te-dnrskqpsu metoprolol XL 25 mg PO daily, amlodipine 5 mg PO daily and Imdur 60 mg PO daily. #Gout: * Continue atdbw-ib-yrqmzyiue allopurinol 200 mg PO daily. #Depression: * Continue ivlro-xm-vwnulhumc escitalopram 20 mg PO daily. Diet: NPO DVT PPx: HSQ and ALPs CODE: DNR/DNI Problem List: 1. Altered mental state 2. Acute renal failure superimposed on stage 3 chronic kidney disease 3. PAD (peripheral artery disease) 4. Superficial femoral artery occlusion 5. Delirium 6. Dehydration 7. Depression 8. Gout 9. HLD (hyperlipidemia) 10. HTN (hypertension) 11. Parkinsons disease Pain Ratin Pain Location: N/A Pain Goal: Remain pain free Pain Plan: Tylenol 650 mg PO Q4H PRN for mild pain (scale 1-3) Tomorrow's Labs & Rationales: BMP to monitor lytes and kidney function in the setting of NAFISA on CKD Discharge Plan Discharge Disposition: STR/NH Anticipated Discharge (Day): tomorrow
[2016-11-16 07:49] LABS: ABSOLUTE BASOPHIL COUNT 0 /CUMM (0.0-0.2); ABSOLUTE EOSINOPHIL COUNT 0.3 /CUMM (0.0-0.7); ABSOLUTE GRANULOCYTE CT 6.4 /CUMM (1.4-6.5); ABSOLUTE LYMPH COUNT 1.9 /CUMM (1.2-3.4); ABSOLUTE MONOCYTE COUNT 0.8 /CUMM (0.10-0.60); BASOPHIL % 0.5 % (0.0-2.0); EOSINOPHIL % 3.6 % (0-5); GRANULOCYTE % 68.1 % (42.2-75.2); HEMATOCRIT 40.6 % (42-52); MEAN CORPUSCULAR HGB 27.8 PG (27.0-31.0); MEAN CORPUSCULAR HGB CONC 31.5 G/DL (33.0-37.0); MEAN CORPUSCULAR VOLUME 88.2 FL (80.0-94.0); MEAN PLATELET VOLUME 9.6 FL (7.4-10.4); PLATELET COUNT 169 /CUMM (130-400); RBC DISTRIBUTION WIDTH 16.7 % (11.5-14.5); WHITE BLOOD CELL COUNT 9.4 /CUMM (4.8-10.8)
--- NOTE | 2016-11-16 08:10 | PN- Student ---
PATSY HO 11/16/16 0755: Subjective Subjective: Medical Student Daily Progress Note: Mr. Pineda is an 85 yo M with PMH of Parkinson's, TIA, COPD, and insulin dependent type 2 DM, who was admitted on 11/14/16 for a 5 day history of worsening AMS. There were no overnight events. This morning the patient's speech is much more clear and coherent. He states he is tired, but feels well. He has no complaints and denies headache, chest pain, shortness of breath, nausea, vomiting, and pain. Current Medications Sig/Yasmeen Start time Last Medication Dose Route Stop Time Status Admin Acetaminophen 650 MG Q4P PRN 11/15 0815 AC PO Allopurinol 200 MG DAILY 11/14 183 AC PO Amlodipine Besylate 5 MG DAILY 11/14 183 AC PO Aspirin 81 MG DAILY 11/14 1849 AC PO Atorvastatin Calcium 10 MG 1700 11/15 1700 AC PO Carbidopa/Levodopa 1 TAB TID 11/14 1849 AC PO Dextrose/Sodium 1,000 ML Q20H 11/16 0145 AC 11/16 Chloride IV 0138 Dextrose/Sodium 1,000 ML Q13H 11/15 0900 DC 11/15 Chloride IV 11/15 2159 1017 Dextrose/Sodium 1,000 ML Q13H 11/14 1900 DC 11/14 Chloride IV 11/15 0759 1936 Escitalopram Oxalate 20 MG DAILY 11/14 1850 AC PO Heparin Sodium 5,000 UNIT Q8 11/14 2200 AC 11/16 (Porcine) SC 0647 Insulin Human Regular 4 UNITS .[facility] 11/15 1755 DC IV 11/15 1756 Insulin Human Regular 2 UNITS .[facility] 11/15 1150 DC IV 11/15 1151 Insulin Human Regular 0 Q6 11/14 2032 AC 11/16 SC 0647 Isosorbide 60 MG DAILY 11/14 185 AC Mononitrate PO Metoprolol Succinate 25 MG DAILY 11/14 1852 AC PO Patient Medication 1 ED .[facility] 11/15 1358 DC Teaching ED 11/15 1359 Objective Objective: Vital Signs Date Time Temp Pulse Resp B/P B/P Pulse O2 O2 Flow FiO2 Mean Ox Delivery Rate 11/16 0000 Nasal 2.0L Cannula 11/15 2217 98.0 62 18 112/60 97 Nasal Cannula 11/15 1816 97.6 75 18 118/62 100 05/04 1600 Nasal 2.0L Cannula 11/15 1019 74 130/70 05/ 0816 74 134/58 05/ 0803 96.8 67 20 172/47 99 Nasal 2.0L Cannula 11/15 0800 95 Nasal 2.0L Cannula Intake & Output 11/16 0800 05/05 0000 11/15 1600 Intake Total 425 600 600 Output Total Balance 425 600 600 Intake, IV 425 600 600 Intake, Oral 0 Number 2 1 Bowel Movements Patient 199 lb Weight Telemetry Monitoring: Sinus rhythm, rate 63 - 79 bpm General: somnolent but arousable with verbal stimuli Neuro: oriented to person only. 5/5 strength in all extremities. follows all commands. speech clear HEENT: atraumatic, dry mucosa. CV: RRR, no murmurs Pulmonary: CTA bilaterally, diminished at bases GI: abdomen soft, non-tender, bowel sounds present Extremities: BLE cool to touch, pulses difficult to appreciate on RLE Assessment/Plan Assessment: Mr. Pineda is an 85 yo M with PMH of Parkinson's, TIA, COPD, and insulin dependent type 2 DM, who was admitted on 11/14/16 for a 5 day history of worsening AMS. Plan: Altered Mental Status: patient condition seems to be improving. Appears mental state is returning to baseline. Dehydration/NAFISA vs. recent infection requiring antibiotics superimposed on underlying dementia * Neuro following - no further recommendations * q4h neuro checks * seizure precautions * Swallow eval before advancing diet Parkinson's disease: on carbidopa/levodopa. stable per neuro * continue carbidopa/levodopa COPD: on 2L NC with SpO2 ranging 95 - 99%. No respiratory complaints. Lungs clear * Continue inhaler * Wean O2 per nursing protocol NAFISA on CKD: BUN and Cr elevated above baseline on admission, has been improving with gentle IVF resuscitation. * Continue gentle IVF resuscitation until able to tolerate po * Caution with medication - no nephrotoxic drugs Insulin Dependent type 2 DM: on novolog 12u TID and Lantus 8u PM. Currently NPO * Continue SSI Asymptomatic Bacteriuria: Patient afebrile, no urinary complaints. had Pseudomonas on urine cultures on 11/10. Cultures here growing Pseudomonas, resistant to Cipro. * ID following * No antibiotics at this time Presumed Cardiac History: on several medications consistent with cardiac history. Records here are incomplete regarding this aspect. * Continue cardiac medication regimen Disposition: Patient stable, returning to baseline. Possible discharge back to nursing facility pending swallow evaluation and successful po intake thereafter. Code Status: DNR/DNI Diet: NPO pending swallow study DVT prophylaxis: ALPs and HSQ
--- NOTE | 2016-11-16 12:27 | PN- Infect Dx ---
Subjective Subjective: Afebrile without complaints Objective Last 24 Hrs of Vital Signs/I&O Vital Signs Date Time Temp Pulse Resp B/P B/P Pulse O2 O2 Flow FiO2 Mean Ox Delivery Rate 11/17 819 97.9 68 18 99 Nasal 2.0L Cannula 11/16 08 Nasal 2.0L Cannula 11/16 0000 Nasal 2.0L Cannula 11/15 2217 98.0 62 18 112/60 97 Nasal Cannula 11/15 1816 97.6 75 18 118/62 100 11/15 1600 Nasal 2.0L Cannula Intake & Output 11/16 1600 11/16 0800 11/16 0000 Intake Total 425 600 Output Total Balance 425 600 Intake, IV 425 600 Number 2 1 Bowel Movements Physical Exam Other Physical Findings: He is more awake and alert, able to answer questions, in no acute distress Lungs decreased breath sounds bilaterally Heart regular rhythm with no murmur Abdomen soft, nontender with positive bowel sounds Back no CVA tenderness Extremities no cyanosis, clubbing or edema Results Last 24 Hours of Lab Results: Laboratory Tests 11/16 653 Chemistry Sodium (137 - 145 mmol/L) 139 Potassium (3.5 - 5.1 mmol/L) 4.4 Chloride (98 - 107 mmol/L) 99 Carbon Dioxide (22 - 30 mmol/L) 32 H Anion Gap (5 - 16) 8 BUN (9 - 20 mg/dL) 19 Creatinine (0.7 - 1.2 mg/dL) 1.2 Estimated GFR (>60 ml/min) 58 L BUN/Creatinine Ratio (7 - 25 %) 15.8 Hematology CBC w Diff NO MAN DIFF REQ WBC (4.8 - 10.8 /CUMM) 9.4 RBC (4.70 - 6.10 /CUMM) 4.60 L Hgb (14.0 - 18.0 G/DL) 12.8 L Hct (42 - 52 %) 40.6 L MCV (80.0 - 94.0 FL) 88.2 MCH (27.0 - 31.0 PG) 27.8 RDW (11.5 - 14.5 %) 16.7 H Plt Count (130 - 400 /CUMM) 169 MPV (7.4 - 10.4 FL) 9.6 Gran % (42.2 - 75.2 %) 68.1 Lymphocytes % (20.5 - 51.1 %) 19.8 L Monocytes % (1.7 - 9.3 %) 8.0 Eosinophils % (0 - 5 %) 3.6 Basophils % (0.0 - 2.0 %) 0.5 Absolute Granulocytes (1.4 - 6.5 /CUMM) 6.4 Absolute Lymphocytes (1.2 - 3.4 /CUMM) 1.9 Absolute Monocytes (0.10 - 0.60 /CUMM) 0.8 H Absolute Eosinophils (0.0 - 0.7 /CUMM) 0.3 Absolute Basophils (0.0 - 0.2 /CUMM) 0 PUBS MCHC (33.0 - 37.0 G/DL) 31.5 L Last 24 Hours of Daniel Results: Blood cultures November 14 negative Urine culture November 14 approximately 30,000 colonies of gram-negative rods Assessment/Plan Impression: Stable off antibiotics with temperatures and white blood cell count remaining normal. His renal function has improved, suggesting there was an element of dehydration, which may have explained, at least in part, his encephalopathy. The positive urine culture likely represents colonization and should not require treatment. Suggestion: 1. Await repeat attempt at swallowing evaluation 2. Continue to follow off antibiotics
--- NOTE | 2016-11-16 15:14 | RADIOLOGY REPORT ---
EXAMINATION: XR MODIFIED BARIUM SWALLOW CLINICAL INFORMATION: Altered mental status COMPARISON: None TECHNIQUE: Modified barium swallow study was performed with speech therapist. FINDINGS: No evidence of any aspiration or penetration was noted at the time of the examination. FLUOROSCOPY TIME: 58 seconds. NUMBER OF IMAGES: 9 IMPRESSION: No evidence of aspiration or penetration. Full procedural detail will be dictated by the speech therapist.
[2016-11-16 16:39] VITALS: BP 120/70
[2016-11-16 21:14] VITALS: BP 128/60
[2016-11-17 00:22] VITALS: BP 170/44
[2016-11-17 00:54] VITALS: BP 148/74
--- NOTE | 2016-11-17 07:43 | Discharge Summary ---
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 He had a recent chest x-ray done on 11/01/2016 at [facility] and was found to have evidence of pneumonia and was treated with Levaquin for a total of 10 days. A urinalysis and urine culture was also done 11/10/2016 4 days prior to admission which showed 10,000 colonies of Pseudomonas that was resistant to ciprofloxacin and sensitive to ceftazidime, gentamicin and imipenem. At baseline the patient can feed himself, he can do certain things and he is usually more responsive and talking then since last 5 days. As per daughter as well as the longterm his mental status has clearly worsened from baseline. VITALS on presentation patient was afebrile, pulse was 84, respirations 22, blood pressure was 143/66, he was 93% saturated on 2 L nasal cannula. Physical exam patient was alert however not oriented, was responding to her questions only intermittently, he would not follow commands, he was not in any acute distress. CVS S1-S2 present no murmur. RS, left basilar rhonchi were heard, otherwise entry bilaterally present. For a predominance soft nontender. Bilateral lower extremity, no edema, pulses palpable. Pupils equal, very sluggishly reactive. Nuero exam : patient could feel a pinching sensation on both the limbs as well as both the hands, reflexes were intact, and had leadpipe rigidity in bilateral lower extremity and cogwheel rigidity in bilateral upper extremities. Cranial nerves and cerebellar signs could not be tested the patient was unable to follow commands. left Sided facial droop was noted, however CT was negative for any acute intracranial pathology however cerebral atrophy and right-sided ventricular sided SOLAR SALES REPRESENTATIVE shunt. Chest x-ray did not show any evidence of pneumonia. Per the W 10 and talking to the staff he has this. ABG - hypercapnia with pCO2 of 47. He was admitted to telemetry and got treated for these medical conditions: #Altered mental status: Most likely represents delirium secondary to mild dehydration in the setting of recent pneumonia, Although urine cultures are growing Pseudomonas, this is likely asymptomatic bacteriuria in the absence of fever and leukocytosis according to the ID diet consultant. Mental status improved after hydration. Modified barium swallow study with no evidence of aspiration or penetration. we started him on puree and nectar thick liquids diet per speech therapy recommendations. #NAFISA on CKD stage 3: Cr improved with hydration and back to its baseline. #PVD: BLE Doppler arterial ultrasound was performed to evaluate nonpalpable right dorsalis pedis pulse which showed vascular occlusive disease involving the right SFA with no demonstrable flow. No need to consult vascular surgery given recent evaluation by vascular surgery at the [facility] with no intervention was indicated. #Parkinson's disease: we continued [id number] Carbidopa/Levodopa 25/250 mg 1 tab PO TID. #HTN: * we continued metoprolol XL 25 mg PO daily, amlodipine 5 mg PO daily and Imdur 60 mg PO daily. Allergies: Coded Allergies: cefadroxil (From DURICEF) (UNKNOWN 11/14/16) cefuroxime (From CEFTIN) (UNKNOWN 11/14/16) donepezil (From ARICEPT) (UNKNOWN 11/14/16) rivastigmine (From EXELON) (UNKNOWN 11/14/16) Pertinent Lab Results: PATIENT: EDEL TRISTAN PRESENT AGE: 85 PATIENT ACCOUNT NO: [id number] : 32 LOCATION: [facility] ORDERING PHYSICIAN: CHRISTINE QUESADA MD SERVICE DATE: 11/14/16 EXAM TYPE: CAT - CT HEAD WO IV CONTRAST EXAMINATION: CT HEAD WITHOUT CONTRAST CLINICAL INFORMATION: Weakness. Confusion. COMPARISON: None TECHNIQUE: Contiguous axial imaging was performed from the skull base to vertex without intravenous administration of contrast. DLP: 672.25 mGy-cm FINDINGS: There is motion which limits study. 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 There is atrophy with prominence of the ventricles and the sulci and hypodensity of the periventricular white matter due to chronic small vessel ischemic disease. There is vascular calcifications of the internal carotid arteries bilaterally. There is no evidence of acute intracranial hemorrhage or acute territorial infarction. No abnormal mass effect or midline shift is seen. Vazquez to white matter differentiation is well preserved. No extra-axial fluid collections are identified. There is a ventriculoperitoneal shunt present attending from the right occipital bone. Catheter tip extends into the right temporal region with catheter tip abutting against the right sphenoid bone in the middle cranial fossa Lobular soft tissue density opacifies the left maxillary sinus. There is a surgical window in the medial wall the left maxillary sinus. The mastoid air cells and middle ear cavities are normally aerated. IMPRESSION: No acute intracranial pathology. Cerebral atrophy. Right-sided ventricular catheter. Lobular density opacifying the left maxillary sinus. DICTATED BY: RAISA HOYOS MD DATE/TIME DICTATED:11/14/161456 HIGH SCHOOL FOREIGN LANGUAGE TEACHER:RIAZ DATE/TIME TRANSCRIBED:11/14/161456 CONFIDENTIAL, DO NOT COPY WITHOUT APPROPRIATE AUTHORIZATION. <Electronically signed in Other Vendor System> SIGNED BY: RAISA HOYOS MD 11/14/16 1505 PATIENT: EDEL TRISTAN PRESENT AGE: 85 PATIENT ACCOUNT NO: [id number] : 32 LOCATION: [facility] ORDERING PHYSICIAN: DOE PIMENTEL MD SERVICE DATE: 11/15/16 EXAM TYPE: US - US-BILAT LOW EXTR ARTERIAL DOP EXAMINATION: NONINVASIVE ASSESSMENT OF THE ARTERIES OF BOTH LOWER EXTREMITIES INTERPRETING VASCULAR \T\ INTERVENTIONAL RADIOLOGIST: Calderon Hernandez MD CLINICAL INFORMATION: Right: Lower extremity TECHNIQUE: Bilateral lower extremity duplex ultrasound was performed with velocity measurements and waveform analysis in the common femoral arteries, profunda femoris arteries, proximal mid and distal superficial femoral arteries, popliteal arteries and tibial vessels. This study was performed only at rest. COMPARISON: None FINDINGS: velocities in cm/sec and phasicity as well as the presence of plaque are reported below RIGHT LEG: common femoral: 170 profunda femoris: 111 proximal SFA: None demonstrable mid SFA: None demonstrable distal SFA: None demonstrable popliteal: 62 Posterior tibial: 65 Anterior tibial: None demonstrable Dorsalis pedis: None demonstrable LEFT LEG: common femoral: 141 profunda femoris: 151 proximal SFA: 35 mid SFA: 17 distal SFA: 42 popliteal: 38 Posterior tibial: 58 Anterior tibial: 75 Dorsalis pedis: 37 IMPRESSION: On the right, there is evidence of vascular occlusive disease involving the SFA with no demonstrable flow but reconstituted popliteal and posterior tibial artery. No flow is seen in the anterior tibial or dorsalis pedis. On the left, low flow is noted in the SFA indicating possible disease. DICTATED BY: RAQUEL HERNANDEZ MD DATE/TIME DICTATED:11/15/161010 HIGH SCHOOL FOREIGN LANGUAGE TEACHER:RIAZ DATE/TIME TRANSCRIBED:11/15/161010 CONFIDENTIAL, DO NOT COPY WITHOUT APPROPRIATE AUTHORIZATION. <Electronically signed in Other Vendor System> SIGNED BY: RAQUEL HERNANDEZ MD 11/15/16 1020 PATIENT: EDEL TRISTAN PRESENT AGE: 85 PATIENT ACCOUNT NO: [id number] : 32 LOCATION: [facility] ORDERING PHYSICIAN: DOE PIMENTEL MD SERVICE DATE: 11/16/16 EXAM TYPE: RAD - XRY-MODIFIED BARIUM SWALLOW EXAMINATION: XR MODIFIED BARIUM SWALLOW CLINICAL INFORMATION: Altered mental status COMPARISON: None TECHNIQUE: Modified barium swallow study was performed with speech therapist. FINDINGS: No evidence of any aspiration or penetration was noted at the time of the examination. FLUOROSCOPY TIME: 58 seconds. NUMBER OF IMAGES: 9 IMPRESSION: No evidence of aspiration or penetration. Full procedural detail will be dictated by the speech therapist. DICTATED BY: KARIS AQUINO MD DATE/TIME DICTATED:11/16/161506 HIGH SCHOOL FOREIGN LANGUAGE TEACHER:RIAZ DATE/TIME TRANSCRIBED:11/16/161506 CONFIDENTIAL, DO NOT COPY WITHOUT APPROPRIATE AUTHORIZATION. <Electronically signed in Other Vendor System> SIGNED BY: KARIS AQUINO MD 11/16/16 [address] [place] [address] DEPARTMENT OF NEUROLOGY ELECTROENCEPHALOGRAM REPORT Patient Name: EDEL TRISTAN Location: [facility] Date of : 32 Unit Number: [id number] Sex: M Age: 85 Electroencephalogram Report Electroencephalogram Results Date of service: 11/17/16 Fishing Line Winding Machine Operator: Treva Wells EEG Number: [id number] Test Utilizes: 10-20 system, 21 lead 18 channel digital recording Pertinent Hx/Physical/Neuro Findings/Clin Diagnosis: Rule out seizure Inpatient Medications: Current Medications Sig/Yasmeen Start time Last Medication Dose Route Stop Time Status Admin Acetaminophen 650 MG .STK-MED ONE 11/17 0059 DC PO 11/17 0100 Acetaminophen 650 MG Q4P PRN 11/15 0815 AC 11/17 PO 0103 Allopurinol 200 MG DAILY 11/14 1836 AC 11/17 PO 0923 Amlodipine Besylate 5 MG DAILY 11/14 1836 AC 11/17 PO 0923 Aspirin 81 MG DAILY 11/14 1849 AC 11/17 PO 0922 Atorvastatin Calcium 10 MG 1700 / 1700 AC 05 PO 1811 Carbidopa/Levodopa 1 TAB TID 11/14 1849 AC 11/17 PO 0923 Dextrose/Sodium 1,000 ML Q20H 11/16 0145 AC 11/16 Chloride IV 2055 Escitalopram Oxalate 20 MG DAILY 11/14 1850 AC 11/17 PO 0923 Heparin Sodium 5,000 UNIT Q8 11/14 2200 AC 11/17 (Porcine) SC 0558 Insulin Aspart 0 TIDAC 11/16 1730 AC 11/17 SC 1215 Insulin Human Regular 0 Q6 11/14 2032 DC 11/16 SC 1216 Isosorbide 60 MG DAILY 11/14 1851 AC 11/17 Mononitrate PO 0922 Metoprolol Succinate 25 MG DAILY 11/14 1852 AC 11/17 PO 0923 Nystatin 5 ML 4 TIMES/DAY 11/16 1809 AC 11/17 PO 0923 Interpretation: The predominant posterior background rhythm consists of poorly modulated, low to medium voltage 6-7 cps activity. Occasional higher voltage 4-6 cps activity is seen anteriorly. No focal or paroxysmal features were identified. Hyperventilation was deferred. Photic stimulation induced no abnormalities. Impression: Abnormal EEG due to generalized slowing of the background rhythm consistent with diffuse cerebral dysfunction. No paroxysmal or epileptiform features were noted DICTATED BY: RADHA REIS,GRACIELA Sams DATE/TIME DICTATED:11/17/161332 HIGH SCHOOL FOREIGN LANGUAGE TEACHER:AGAPITO DATE/TIME TRANSCRIBED:11/17/161332 REPORT NUMBER:[id number] CONFIDENTIAL, DO NOT COPY WITHOUT APPROPRIATE AUTHORIZATION. <Electronically signed by GRACIELA GARCIA MD> 11/17/161336 CC: FIFI PENA MD Order #: Accession #: Report #: [id number] Page[p pg] Disposition Summary Disposition Principal Diagnosis: Parkinson's and dehydration Additional Diagnosis: Hx of subarachnoid hemorrhage s/p evacuation and placement of right SOLAR SALES REPRESENTATIVE shunt and colon cancer s/p resection Discharge Disposition: SNF Discharge Instructions General Discharge Information Code Status: Do Not Resucitate/Intubat Patient's Diet: Diabetic diet, pur and nectar Patient's Activity: As tolerated Follow-Up Instructions/Appts: -Please follow-up with your primary care provider within 7 days after discharge. -We have made changes to your home medications, please read the instructions carefully. -Please come back to the hospital if your symptoms got worse. Medications at Discharge Discharge Medications: Continue taking these medications: Aspirin (Aspirin*) 81 MG TAB.CHEW 1 Tablet ORAL DAILY Lidocaine (Lidocaine) 5 % ADH..PATCH 1 Patch On the skin DAILY Qty = 20 Tramadol HCl (Tramadol HCl) 50 MG TABLET 0.5 Tablet ORAL TWICE DAILY Amoxicillin (Amoxicillin) 500 MG TABLET 1 Tablet ORAL GIVE ONCE Escitalopram Oxalate (Escitalopram Oxalate) 20 MG TABLET 1 Tablet ORAL DAILY Allopurinol (Allopurinol) 100 MG TABLET 2 Tablet ORAL DAILY Metoprolol Succ XL (Toprol XL) 25 MG TAB 1 Tablet ORAL DAILY Atorvastatin Calcium (Atorvastatin Calcium) 10 MG TABLET 1 Tablet ORAL 5 PM Amlodipine Besylate (Amlodipine Besylate) 5 MG TABLET 1 Tablet ORAL DAILY Qty = 30 Isosorbide Mononitrate (Isosorbide Mononitrate ER) 60 MG TAB.ER.24H 1 Tablet ORAL DAILY Lactobacillus Acidophilus (Acidophilus) 1 EACH CAPSULE 1 Capsule ORAL DAILY Furosemide (Lasix) 40 MG TABLET 1 Tablet ORAL DAILY Insulin Glargine,Hum.rec.anlog (Lantus Solostar) 100 UNIT/ML (3 ML) INSULN.PEN 8 Unit Inject into fatty tissue Every night Insulin Aspart, Recombinant (Novolog Flexpen) 100 UNIT/ML INSULN.PEN 12 Units Inject into fatty tissue THREE TIMES DAILY Carbidopa/Levodopa (Carbidopa-Levodopa 25-250 Tab) 25 MG-250 MG TABLET 1 Tablet ORAL THREE TIMES DAILY Fluticasone/Salmeterol (Advair 250-50 Diskus) 250 MCG-50 MCG/DOSE BLST.W.DEV 1 Puff Inhale through mouth TWICE DAILY Cranberry Fruit (Cranberry) (Unknown Strength) TABLET Unknown Dose ORAL TWICE DAILY Fish Oil/Dha/Epa (Fish Oil 1,200 MG Fish Oil) 1,200 MG-144 MG-216 MG CAPSULE 1 Capsule ORAL DAILY Multivitamin (Daily Multiple Vitamin) 1 EACH TABLET 1 Tablet ORAL DAILY Latanoprost (Latanoprost) 0.005 % DROPS 1 Drop In the eye Every night Copies To: JUNAID KEITH MD
--- NOTE | 2016-11-17 07:44 | Patient Discharge Instructions ---
Discharge Instructions General Discharge Information You were seen/treated for: Altered mental status Dehydration Special Instructions: -Please follow-up with your primary care provider within 7 days after discharge. -We have made changes to your home medications, please read the instructions carefully. -Please come back to the hospital if your symptoms got worse. Diet Recommended Diet: Diabetic (pure, nectar) Activity Full Activity/No Limits: Yes (as tolerated) Acute Coronary Syndrome Inclusion Criteria At DC or during hospital stay patient has or had the following: ACS DIAGNOSIS No Discharge Core Measures Meds if any: Prescribed or Continued at Discharge Meds if any: NOT Prescribed or Continued at Discharge Congestive Heart Failure Inclusion Criteria At DC or during hospital stay patient has or had the following: CHF DIAGNOSIS No Discharge Core Measures Meds if any: Prescribed or Continued at Discharge Meds if any: NOT Prescribed or Continued at Discharge Cerebrovascular accident Inclusion Criteria At DC or during hospital stay patient has or had the following: CVA/TIA Diagnosis No Discharge Core Measures Meds if any: Prescribed or Continued at Discharge Meds if any: NOT Prescribed or Continued at Discharge Venous thromboembolism Inclusion Criteria VTE Diagnosis No VTE Type NONE VTE Confirmed by (Test) NONE Discharge Core Measures - Per Current guidelines, there needs to be overlap - treatment for the first 5 days of Warfarin therapy. - If discharged on Warfarin prior to 5 days of - overlap therapy, the patient will need to be - assessed for post discharge needs including - *Post discharge parental anticoagulation - *Warfarin and/or parental anticoagulation education - *Follow up date to check INR post discharge At least 5 days overlap therapy as Inpatient No Meds if any: Prescribed or Continued at Discharge Note: Overlap Therapy is Warfarin and Anticoagulant Meds if any: NOT Prescribed or Continued at Discharge
[2016-11-17 07:56] VITALS: BP 150/80
--- NOTE | 2016-11-17 08:47 | PN- Housestaff ---
LOREN REIS,[facility] 11/17/16 0846: Subjective Follow-up For: Altered mental status NAFISA on CKD Subjective: No acute events overnight. Patient seen and examined this morning. He is lying comfortably in bed and offers no complaints. He remains confused. He has tolerated puree and nectar thick liquids diet with excellent oral intake since dinner last night. Review of Systems Constitutional: Reports: see HPI. Objective Last 24 Hrs of Vital Signs/I&O Vital Signs Date Time Temp Pulse Resp B/P B/P Pulse O2 O2 Flow FiO2 Mean Ox Delivery Rate 11/17 1522 98.6 69 14 150/80 05/ 0923 69 150/80 05/ 0923 69 150/80 05/ 0922 69 150/80 / 0800 Nasal 2.0L Cannula 11/17 0756 98.6 69 14 150/80 98 Nasal 2.0L Cannula / 0054 148/74 / 0022 97.7 74 20 170/44 94 Nasal 2.0L Cannula 11/17 0000 Nasal Cannula Intake & Output 11/17 1600 11/17 0800 / 0000 Intake Total 880 520 750 Output Total Balance 880 520 750 Intake, IV 400 400 400 Intake, Oral 480 120 350 Number 1 1 3 Bowel Movements Physical Exam General Appearance: Alert, Cooperative, No Acute Distress HEENT: Atraumatic, Mucous Membr. moist/pink Cardiovascular: Regular Rate, Normal S1, Normal S2, No Murmurs, Gallops, Rubs Lungs: Clear to Auscultation Abdomen: Soft, No Tenderness, Positive Bowel Sounds Extremities: No Clubbing, No Cyanosis, No Edema Current Medications: Current Medications Sig/Yasmeen Start time Last Medication Dose Route Stop Time Status Admin Acetaminophen 650 MG .STK-MED ONE 11/17 0059 DC PO 11/17 0100 Acetaminophen 650 MG Q4P PRN 11/15 0815 DCD 11/17 PO 0103 Allopurinol 200 MG DAILY 11/15 1835 DCD 11/17 PO 0923 Amlodipine Besylate 5 MG DAILY 11/15 1835 DCD 11/17 PO 0923 Aspirin 81 MG DAILY 11/14 1848 DCD 11/17 PO 0922 Atorvastatin Calcium 10 MG 1700 11/15 1700 DCD 11/16 PO 1811 Carbidopa/Levodopa 1 TAB TID 11/14 1848 DCD 11/17 PO 0923 Dextrose/Sodium 1,000 ML Q20H 11/16 0145 DCD 11/16 Chloride IV 2055 Escitalopram Oxalate 20 MG DAILY 11/14 1850 DCD 05/ PO 0923 Heparin Sodium 5,000 UNIT Q8 11/14 2200 DCD 11/17 (Porcine) SC 1413 Insulin Aspart 0 TIDAC 11/16 1730 DCD 11/17 SC 1215 Isosorbide 60 MG DAILY 11/14 185 DCD 11/17 Mononitrate PO 0922 Metoprolol Succinate 25 MG DAILY 11/14 1852 DCD 05 PO 0923 Nystatin 5 ML 4 TIMES/DAY 11/16 1809 DCD 11/17 PO 1413 Last 24 Hrs of Lab/Daniel Results Last 24 Hrs of Labs/Mics: Laboratory Tests 11/17/16 0700: Anion Gap 10, Estimated GFR 53 L, BUN/Creatinine Ratio 16.2 Assessment/Plan Assessment: 85 y/o M with PMHx of Parkinson's disease, subarachnoid hemorrhage s/p evacuation and placement of right PHARMACY SALES ASSISTANT shunt and colon cancer s/p resection who presents with altered mental status. #Altered mental status: Most likely represents delirium secondary to mild dehydration in the setting of recent pneumonia, UTI and NAFISA with possible contributions from medications including levofloxacin and tramadol. Although urine cultures are growing Pseudomonas, this is felt to be asymptomatic bacteriuria in the absence of fever and leukocytosis. Mental status back to baseline. Tolerating puree and nectar thick liquids diet with excellent oral intake. * Discharge to SNF today with instructions to follow up with PCP within one week of discharge. * Continue puree and nectar thick liquids diet as recommended by the speech therapist on discharge. #NAFISA on CKD stage 3: Resolved, creatinine back to baseline. Likely prerenal in the setting of dehydration. * NTD. #PAD: BLE Doppler arterial ultrasound with vascular occlusive disease involving the right SFA with no demonstrable flow. * No need to consult vascular surgery given [facility] no intervention indicated. Diet: Heart Healthy - Puree and nectar thick liquids DVT PPx: HSQ and ALPs CODE: DNR/DNI Problem List: 1. Acute renal failure superimposed on stage 3 chronic kidney disease 2. Altered mental state 3. Parkinsons disease 4. HTN (hypertension) 5. HLD (hyperlipidemia) 6. Gout 7. Depression 8. Dehydration 9. Delirium 10. PAD (peripheral artery disease) 11. Superficial femoral artery occlusion Pain Ratin Pain Location: N/A Pain Goal: Remain pain free Pain Plan: Tylenol 650 mg PO Q4H PRN for mild pain (scale 1-3) Tomorrow's Labs & Rationales: None Discharge Plan Discharge Disposition: STR/NH Stable for Discharge? Yes Anticipated Discharge (Day): today MARGOT PRADO MD 11/17/16 1613: Attending MD Review Statement Attending Statement Attending MD Statement: examined this patient, discuss w/resident/PA/MOLDER MEAT, agreed w/resident/PA/MOLDER MEAT, reviewed EMR data (avail), discussed with nursing, discussed with case mgmt, amended to note Attending Assessment/Plan: Patient seen and examined. Resting comfortably and not in any acute distress. No issues. He tolerated denied last night and breakfast this morning. On examination he is not in any acute distress. His lungs are clear bilaterally. Abdomen soft and nontender. He is scheduled for discharge today continue on the modified diet as recommended by the speech therapist.
--- NOTE | 2016-11-17 13:37 | ELECTROENCEPHALOGRAM REPORT ---
See Addendum Electroencephalogram Report Electroencephalogram Results Date of service: 11/17/16 Photographic Process Screen Maker: Treva Wells EEG Number: [id number] Test Utilizes: 10-20 system, 21 lead 18 channel digital recording Pertinent Hx/Physical/Neuro Findings/Clin Diagnosis: Rule out seizure Inpatient Medications: Current Medications Sig/Yasmeen Start time Last Medication Dose Route Stop Time Status Admin Acetaminophen 650 MG .STK-MED ONE 11/17 0059 DC PO / 0100 Acetaminophen 650 MG Q4P PRN 11/15 0815 AC 05 PO 0103 Allopurinol 200 MG DAILY 11/14 1836 AC 05/ PO 0923 Amlodipine Besylate 5 MG DAILY 11/14 1836 AC 11/17 PO 0923 Aspirin 81 MG DAILY 11/14 1849 AC 11/17 PO 0922 Atorvastatin Calcium 10 MG 1700 11/15 1700 AC 05/ PO 1811 Carbidopa/Levodopa 1 TAB TID 11/14 1849 AC 05/ PO 0923 Dextrose/Sodium 1,000 ML Q20H / 0145 AC 05/ Chloride IV 2055 Escitalopram Oxalate 20 MG DAILY 11/14 1850 AC 05/ PO 0923 Heparin Sodium 5,000 UNIT Q8 / 2200 AC 05/ (Porcine) SC 0558 Insulin Aspart 0 TIDAC 11/16 1730 AC 05/ SC 1215 Insulin Human Regular 0 Q6 / 2032 DC 05/05 SC 1216 Isosorbide 60 MG DAILY 11/14 1851 AC 05/06 Mononitrate PO 0922 Metoprolol Succinate 25 MG DAILY 11/14 1852 AC 05/ PO 0923 Nystatin 5 ML 4 TIMES/DAY 11/16 1809 AC 05/ PO 0923 Interpretation: The predominant posterior background rhythm consists of poorly modulated, low to medium voltage 6-7 cps activity. Occasional higher voltage 4-6 cps activity is seen anteriorly. No focal or paroxysmal features were identified. Hyperventilation was deferred. Photic stimulation induced no abnormalities. Impression: Abnormal EEG due to generalized slowing of the background rhythm consistent with diffuse cerebral dysfunction. No paroxysmal or epileptiform features were noted
[2016-11-17 15:22] VITALS: BP 150/80
== END 2016-11-17 17:25 | DRG 880 ==
LOC: ERH 13:48 → 1NO 16:29 → ERHI 16:29 → ENRESERV 17:20 → 1NO 19:23
PROVIDERS: Dermatology; Emergency Medicine; Internal Medicine; ADMIT Internal Medicine
PROC: B54DZZZ Ultrasonography of Bilateral Lower Extremity Veins (ICD-10-PCS; principal; 2016-11-15)
DX: F05 Delirium due to known physiological condition (principal); G93.40 Encephalopathy, unspecified; E11.22 Type 2 diabetes mellitus with diabetic chronic kidney disease; G20 Parkinson's disease; F02.80 Dementia in other diseases classified elsewhere, unspecified severity, without behavioral disturbance, psychotic disturbance, mood disturbance, and anxiety; J44.9 Chronic obstructive pulmonary disease, unspecified; E86.0 Dehydration; N18.3 Chronic kidney disease, stage 3 (moderate); Z98.2 Presence of cerebrospinal fluid drainage device; N40.1 Benign prostatic hyperplasia with lower urinary tract symptoms; I12.9 Hypertensive chronic kidney disease with stage 1 through stage 4 chronic kidney disease, or unspecified chronic kidney disease; Z85.038 Personal history of other malignant neoplasm of large intestine; E78.5 Hyperlipidemia, unspecified; Z66 Do not resuscitate; Z87.891 Personal history of nicotine dependence
CPT/HCPCS: 1NSP; 36415; 74230; 80307; 81001; 82436; 87040; 87086; 93005; 93010; 93925; 95816; J1644; J1815; J3490; J7040; J7042

== ENCOUNTER 2017-07-13 14:10 | Emergency (ER) | payer OTHER, MEDICARE ==
[~2017-07-13 14:10] MED LIST: ACIDOPHILUS1 EACH PO; ADVAIR 250-501 EACH INH; ALBUTEROL2.5 MG/3 M INH; ALLOPURINOL100 M1 PO; AMLODIPINE BESYL5 M1 PO; AMOXICILLIN500 M3 PO; ASPIRIN81 M4 PO; ATORVASTATIN CA10 M1 PO; CARBIDOPA-LEVO1 EAC8 PO; CRANBERRY400 M3 PO; DAILY MULTIPLE1 EACH PO; DOXYCYCLINE HY100 M4 PO; ESCITALOPRAM OX20 MG PO; FISH OIL 1,2001 EACH PO; ISOSORBIDE MONO60 M1 PO; LANTUS SOL100 UNIT/1 SC; LASIX40 M1 PO; LATANOPROST2.5 ML OU; LIDOCAINE1 EACH TOP; NOVOLOG FL100 UNIT/1 SC; PREDNISONE10 M2 PO; TOPROL XL25 M1 PO; TRAMADOL HCL50 M1 PO
--- NOTE | 2017-07-13 14:17 | ED NEURO DEFICIT/STROKE ---
History of Present Illness General Chief Complaint: Altered Mental Status Stated Complaint: BIBA ALTERED MENTAL STATUS Source: family, old records, EMS Exam Limitations: dementia Vital Signs & Intake/Output Vital Signs & Intake/Output Vital Signs Date Time Temp Pulse Resp B/P B/P Pulse O2 O2 Flow FiO2 Mean Ox Delivery Rate 07/134 96.5 62 18 134/59 98 Nasal 4.0L Cannula 07/13 2025 97.1 60 20 148/65 98 Nasal 4.0L Cannula 07/13 1837 97.3 56 18 131/63 100 Nasal 4.0L Cannula 07/13 1552 97.2 79 16 118/57 99 Room Air 07/13 1442 100 Nasal 4.0L Cannula 07/13 1440 96.5 62 18 102/49 100 Nasal 4.0L Cannula Allergies Coded Allergies: cefadroxil (From DURICEF) (UNKNOWN 11/14/16) cefuroxime (From CEFTIN) (UNKNOWN 11/14/16) donepezil (From ARICEPT) (UNKNOWN 11/14/16) rivastigmine (From EXELON) (UNKNOWN 11/14/16) Reconcile Medications Acetaminophen (Mapap) 325 MG TABLET 2 TAB PO Q6H PRN PAIN/TEMP>101 (Reported) Acetaminophen (Acephen) 650 MG SUPP.RECT 1 SUP RI Q6H PRN PAIN/TEMP>101 ( Reported) Albuterol Sulfate 2.5 MG/3 ML (0.083 %) VIAL.NEB 1 Vial INH/TOMER Q6H PRN DYSPNEA/WHEEZING (Reported) Albuterol Sulfate 2.5 MG/3 ML (0.083 %) VIAL.NEB 3 ML INH Q4P PRN WHEEZING Allopurinol 100 MG TABLET 2 TAB PO DAILY GOUT (Reported) Amlodipine Besylate 5 MG TABLET 1 TAB PO DAILY HEART (Reported) Amoxicillin 500 MG CAPSULE 4 CAP PO AD PRN 1 HR PRIOR TO DENTAL PROCEDURE ( Reported) Aspirin (Aspirin*) 81 MG TAB.CHEW 1 TAB PO DAILY HEART HEALTH (Reported) Atorvastatin Calcium 10 MG TABLET 1 TAB PO 1700 CHOLESTEROL (Reported) Bisacodyl (Dulcolax) 10 MG SUPP.RECT 1 SUP RC DAILY PRN CONSTIPATION ( Reported) Carbidopa/Levodopa (Carbidopa-Levodopa 25-250 Tab) 25 MG-250 MG TABLET 1 TAB PO TID PARKINSONS (Reported) Cranberry Extract (Cranberry) (Unknown Strength) CAPSULE (Unknown Dose) PO DAILY SUPPLEMENT (Reported) Escitalopram Oxalate 20 MG TABLET 1 TAB PO DAILY MENTAL HEALTH (Reported) Fish Oil/Dha/Epa (Fish Oil 1,200 MG Fish Oil) 1,200 MG-144 MG-216 MG CAPSULE 1 CAP PO DAILY SUPPLEMENT (Reported) Fluticasone/Salmeterol (Advair 250-50 Diskus) 250 MCG-50 MCG/DOSE BLST.W.DEV 1 PUF INH BID BREATHING PROBLEMS (Reported) Furosemide (Lasix) 40 MG TABLET 1 TAB PO DAILY WATER RETENTION (Reported) Glucagon,Human Recombinant (Glucagon Emergency Kit) 1 MG KIT 1 MG IM AD PRN HYPOGLYCEMIA (Reported) Insulin Aspart (Novolog) 100 UNIT/ML VIAL DM (Reported) Insulin Aspart, Recombinant (Novolog Flexpen) 100 UNIT/ML INSULN.PEN 2 U SC TIDAC DIABETES (Reported) Insulin Glargine,Hum.rec.anlog (Lantus Solostar) 100 UNIT/ML (3 ML) INSULN.PEN 6 UNIT SC QPM DIABETES (Reported) Isosorbide Mononitrate (Isosorbide Mononitrate ER) 60 MG TAB.ER.24H 1 TAB PO DAILY HEART (Reported) Lactobacillus Acidophilus (Acidophilus) 1 EACH CAPSULE 1 CAP PO DAILY GI ( Reported) Latanoprost 0.005 % DROPS 1 GTT OU QPM BOTH EYES (Reported) Lidocaine 5 % ADH..PATCH 1 PAT TOP DAILY PAIN (Reported) Magnesium Hydroxide (Milk Of Magnesia) 400 MG/5 ML ORAL.SUSP 30 ML PO Q3D PRN CONSTIPATION (Reported) Melatonin 3 MG TABLET 1 TAB PO QHS PRN SUPPLEMENT (Reported) Metoprolol Succ XL (Toprol XL) 25 MG TAB 1 TAB PO DAILY HEART (Reported) Multivitamin (Daily Multiple Vitamin) 1 EACH TABLET 1 TAB PO DAILY VITAMIN SUPPORT (Reported) Na Phos,M-B/Na Phos,Di-Ba (Fleet Enema) 19 GRAM-7 GRAM/118 ML ENEMA 1 E RC DAILY PRN CONSTIPATION (Reported) Naloxone HCl (Narcan) 4 MG/ACTUATION SPRAY 4 MG JULIA AD PRN OPIOID INDUCED RESP. DEPRESSIO (Reported) Ondansetron HCl 4 MG TABLET 1 TAB PO Q6P PRN N/V (Reported) Tramadol HCl 50 MG TABLET 0.5 TAB PO DAILY PAIN (Reported) Triage Nurses Notes Reviewed? yes Onset: Abrupt Duration: better Timing: single episode today Baseline: alert but disoriented, unable to walk HPI: Patient is a 86-year-old male with a past medical history of Parkinson's disease , dementia, TIA and subarachnoid hemorrhage status post shunting, pericarditis, COPD on 3 L of home O2, BPH diabetes: And skin cancer remote history who currently resides at [facility] Fidel Bojorquez patient was recently admitted and discharged from [facility] approximately 2 weeks ago for concerns of COPD exacerbation who presents to emergency room and with staff members and daughter noted that patient had slurred speech 30 minutes prior to arrival and is pale in complexion daughter does state that he has a history of chronic left facial droop due to the stroke history and water does state that patient becomes intermittently more confused and has slurred speech Daughter does state that his mental capacity is at baseline EMS state that blood sugar was 183, patient was hypotensive on arrival which IV fluid resuscitation was administered. History is limited due to dementia. The other daughter does present to witness the episode and which she noted that patient was pale in complexion diaphoretic and had a presyncopal episode as well as a brown stool production incontinence episode and noted the blood pressure to be 80/30, daughter is a nurse 07/13/2017 2:35:36 PM currently daughter states that patient is significantly improved on presentation compared to earlier symptoms (Pankaj Ann) Past History Travel History Traveled to [place] past 21 day No Medical History Any Pertinent Medical History? 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 No (Pankaj Ann) Review of Systems Review of Systems Constitutional: Reports: see HPI. EENTM: Reports: no symptoms. Respiratory: Reports: no symptoms. Cardiovascular: Reports: no symptoms. GI: Reports: no symptoms. Genitourinary: Reports: no symptoms. Musculoskeletal: Reports: no symptoms. Skin: Reports: no symptoms. Neurological/Psychological: Reports: see HPI. Hematologic/Endocrine: Reports: no symptoms. Immunologic/Allergic: Reports: no symptoms. All Other Systems: Reviewed and Negative (Pankaj Ann) Physical Exam Physical Exam General Appearance: no apparent distress, alert, comfortable Head: atraumatic Eyes: Bilateral: normal appearance, PERRL, EOMI. Ears, Nose, Throat: normal ENT inspection, moist mucous membrane, hearing grossly normal Neck: NOTED SOFT TISSUE SWELLING TO OCCIPITAL JUNCTION TO THE NECK NONTENDER, NO ERYTHEMA, NO FLUCTUANCE NO D/C Respiratory: normal breath sounds, chest non-tender, no respiratory distress Cardiovascular: regular rate/rhythm Peripheral Pulses: 2+ radial (R), 2+ radial (L) Gastrointestinal: normal bowel sounds, soft, non-tender Cranial Nerves: PERRL Skin: intact, normal color, warm/dry Comments: NEURO- noted left-sided facial droop patient disoriented Noted mild slurred speech RECTAL- NORMAL INSPECTION, BROWN STOOL, NEGATIVE FOBT Core Measures CVA/TIA Diagnosis: No NIH Stroke Scale NIH Stroke Scale Response Value Level of Consciousness alert 0 LOC Questions answers one correctly 1 LOC Commands obeys both correctly 0 Best Gaze normal 0 Visual [place] no visual loss 0 Facial Paresis partial 2 Motor Arm - Left no drift 0 Motor Arm - Right no drift 0 Motor Leg - Left no drift 0 Motor Leg - Right no drift 0 Limb Ataxia no ataxia 0 Sensory normal 0 Best Language mild to moderate aphasia 1 Dysarthria mild/mod slurring words 1 Extinction and Inattention no neglect 0 Total 5 Swallow Evaluation Pass Swallow eval date 07/13/17 Swallow eval time 1437 Sepsis Present: No Sepsis Focused Exam Completed? No (Pankaj Ann) Progress Differential Diagnosis: Dailey's Palsy, drug intoxication, electrolyte imbalance, encephalitis, hypoglycemia, intracranial Hem., intracranial mass/tumor, meningitis, migraine CRANE, seizure disorder, stroke, subarachnoid Hem., vertebrobasilar insuff. Plan of Care: Orders Procedure Date/time Status TROPONIN LEVEL 07/13 1800 Complete EKG 07/13 1800 Active EKG 07/13 1418 Active Telemetry/Fireworks Assembly Supervisor 07/13 1417 Active TROPONIN LEVEL 07/13 1417 Complete PARTIAL THROMBOPLASTIN TIME 07/13 1417 Complete PROTHROMBIN TIME 07/13 1417 Complete MAGNESIUM 07/13 1417 Complete COMPREHENSIVE METABOLIC PANEL 07/13 141 Complete CBC WITHOUT DIFFERENTIAL 07/13 1417 Complete Laboratory Tests 07/13/17 1805: Troponin I 0.04 07/13/17 1507: Anion Gap 7, Estimated GFR 45 L, BUN/Creatinine Ratio 22.0, Glucose 138 H, Calcium 8.5, Magnesium 1.9, Total Bilirubin 0.4, AST 12 L, ALT 11 L, Alkaline Phosphatase 81, Troponin I 0.04, Total Protein 4.9 L, Albumin 2.8 L, Globulin 2.1, Albumin/Globulin Ratio 1.3, PT 10.5, INR 1.00, APTT 26, CBC w Diff NO MAN DIFF REQ, RBC 3.44 L, MCV 92.0, MCH 29.4, RDW 16.7 H, MPV 8.6, Gran % 78.9 H, Lymphocytes % 11.9 L, Monocytes % 7.8, Eosinophils % 1.1, Basophils % 0.3, Absolute Granulocytes 12.2 H, Absolute Lymphocytes 1.8, Absolute Monocytes 1.2 H, Absolute Eosinophils 0.2, Absolute Basophils 0, PUBS MCHC 31.9 L Initial presentation with daughter present that there is a known left facial droop Daughter does state that patient does become confused intermittently and has slurred speech intermittently in which the NIH stroke scale and physical exam findings was not definitive on initial arrival of CVA due to patient's dementia altering the NIH stroke scale however CT scan was immediately administered Daughter does state a bowel movement occurred prior to arrival normal brown stool negative fecal occult blood test Patient passed gag reflex IV fluids were administered CT scan was resulted showing no acute process I discussed the occipital soft tissue mass findings with family members gave copy of the images no concerns of infectious process to the site Patient's blood work was unremarkable compared to baseline per old records Patient's blood pressure had improved Patient will receive second set troponin and EKG discussed disposition plan with Dr. Coleman who agrees Chest x-ray was resulted showing nonspecific obesity however patient was afebrile and no coughing episodes occurred in the emergency room at which most likely this is not an infectious pneumonia upon discharge patient looks nontoxic and afebrile patient was normotensive Diagnostic Imaging: Viewed by Me: Radiology Read, CT Scan. Radiology Impression: SEE COMMENTS Initial ED EK BPM, RBBB, T WAVE INVERSION- LEAD II,III Repeat EKG: unchanged Comments: PATIENT: EDEL TRISTAN PRESENT AGE: 86 PATIENT ACCOUNT NO: [id number] : 32 LOCATION: ER ORDERING PHYSICIAN: Pankaj CARTER SERVICE DATE: 07/13/17163 EXAM TYPE: RAD - XRY-PORTABLE CHEST XRAY EXAMINATION: XR PORTABLE CHEST CLINICAL INFORMATION: Altered mental status COMPARISON: 07/01/2017 chest x-ray TECHNIQUE: Portable AP view of the chest was obtained. FINDINGS: The cardiomediastinal silhouette is normal. There is opacity at the right lung base with obscuration of the right diaphragmatic border. The left lung is clear. No sizable pleural effusion. No pneumothorax. Degenerative changes of bilateral shoulder joints are noted. IMPRESSION: Right lower lobe pulmonary opacity, can represent pneumonia. Clinical correlation is suggested. DICTATED BY: Doron Johnson MD DATE/TIME DICTATED:07/13/171651 SEPARATOR TENDER:RAIZ DATE/TIME TRANSCRIBED:07/13/171651 CONFIDENTIAL, DO NOT COPY WITHOUT APPROPRIATE AUTHORIZATION. <Electronically signed in Other Vendor System> SIGNED BY: Doron Johnson MD 07/13/171656 PATIENT: EDEL TRISTAN PRESENT AGE: 86 PATIENT ACCOUNT NO: [id number] : 32 LOCATION: ER ORDERING PHYSICIAN: Pankaj CARTER SERVICE DATE: 07/13/17141 EXAM TYPE: CAT - CT HEAD WO IV CONTRAST EXAMINATION: CT HEAD WITHOUT CONTRAST CLINICAL INFORMATION: Left-sided facial droop. COMPARISON: CT of the head done on 11/14/2016. TECHNIQUE: Contiguous axial imaging was performed from the skull base to vertex without intravenous administration of contrast. DLP: 631.0 mGy-cm FINDINGS: There is no evidence of acute intracranial hemorrhage or territorial infarction. No abnormal mass effect or midline shift is seen. Vazquez to white matter differentiation is well preserved. No extra-axial fluid collections are identified. The ventricles are normal in size. Persistent stable diffuse moderate cortical atrophy and asymmetric right frontoparietal white matter hypodensity consistent with old infarctions are noted. Old infarction is also noted at left parietal convexity region. As was documented on the prior study, there is a ventricular shunt tube identified which is extending between the right posterior parietal region with its tip extending across the brain parenchyma to the level of the anterior tip of the right temporal lobe abutting the adjacent part of the bone, unchanged. Postsurgical change of lanie hole is noted at right frontal and left posterior parietal region as well. Persistent 2.7 x 1.5 cm subcutaneous soft tissue mass is identified at midline overlying the occipital region, of uncertain etiology. The mastoid air cells and visualized portions of the paranasal sinuses are well aerated. IMPRESSION: 1. Stable appearance of the brain parenchyma, unchanged since 11/14/2016. 2. Specifically no acute intracranial pathology. 3. Specific note is made of extraventricular location of the ventricular shunt tube with its tip abutting the right sphenoid bone at the tip of the right temporal lobe, unchanged since prior study. 4. Nonspecific stable 2.7 x 1.5 cm subcutaneous soft tissue mass is identified at midline overlying the occipital region. This critical result was discussed with EMMA Antonio at 2:56 PM on 07/13/2017 and it was ascertained that the content and urgency of the report was understood at the time of direct communication. (Pankaj Ann) Departure Departure Disposition: HOME OR SELF CARE Condition: Stable Clinical Impression Primary Impression: Hypotension Secondary Impressions: Vasovagal episode Referrals: Reji REIS,Saima Gonzalez (PCP/Family) Additional Instructions: Return to emergency room if symptoms worsen. Continue home medications Departure Forms: Customer Survey General Discharge Information (Pankaj Ann) PA/[employer] Co-Sign Statement Statement: ED Attending supervision documentation- [X] I saw and evaluated the patient. I have also reviewed all the pertinent lab results and diagnostic results. I agree with the findings and the plan of care as documented in the PA's/[employer]'s documentation. [X] I have reviewed the ED Record and agree with the PA's/[employer]'s documentation. [] Additions or exceptions (if any) to the PAs/[employer]'s note and plan are summarized below: [] ([place] REIS,Albaro Mccain)
--- NOTE | 2017-07-13 15:19 | CT SCAN REPORT ---
EXAMINATION: CT HEAD WITHOUT CONTRAST CLINICAL INFORMATION: Left-sided facial droop. COMPARISON: CT of the head done on 11/14/2016. TECHNIQUE: Contiguous axial imaging was performed from the skull base to vertex without intravenous administration of contrast. DLP: 631.0 mGy-cm FINDINGS: There is no evidence of acute intracranial hemorrhage or territorial infarction. No abnormal mass effect or midline shift is seen. Vazquez to white matter differentiation is well preserved. No extra-axial fluid collections are identified. The ventricles are normal in size. Persistent stable diffuse moderate cortical atrophy and asymmetric right frontoparietal white matter hypodensity consistent with old infarctions are noted. Old infarction is also noted at left parietal convexity region. As was documented on the prior study, there is a ventricular shunt tube identified which is extending between the right posterior parietal region with its tip extending across the brain parenchyma to the level of the anterior tip of the right temporal lobe abutting the adjacent part of the bone, unchanged. Postsurgical change of lanie hole is noted at right frontal and left posterior parietal region as well. Persistent 2.7 x 1.5 cm subcutaneous soft tissue mass is identified at midline overlying the occipital region, of uncertain etiology. The mastoid air cells and visualized portions of the paranasal sinuses are well aerated. IMPRESSION: 1. Stable appearance of the brain parenchyma, unchanged since 11/14/2016. 2. Specifically no acute intracranial pathology. 3. Specific note is made of extraventricular location of the ventricular shunt tube with its tip abutting the right sphenoid bone at the tip of the right temporal lobe, unchanged since prior study. 4. Nonspecific stable 2.7 x 1.5 cm subcutaneous soft tissue mass is identified at midline overlying the occipital region. This critical result was discussed with EMMA Antonio at 2:56 PM on 07/13/2017 and it was ascertained that the content and urgency of the report was understood at the time of direct communication.
[2017-07-13 15:22] LABS: ABSOLUTE BASOPHIL COUNT 0 /CUMM (0.0-0.2); ABSOLUTE EOSINOPHIL COUNT 0.2 /CUMM (0.0-0.7); ABSOLUTE GRANULOCYTE CT 12.2 /CUMM (1.4-6.5); ABSOLUTE LYMPH COUNT 1.8 /CUMM (1.2-3.4); ABSOLUTE MONOCYTE COUNT 1.2 /CUMM (0.10-0.60); BASOPHIL % 0.3 % (0.0-2.0); EOSINOPHIL % 1.1 % (0-5); GRANULOCYTE % 78.9 % (42.2-75.2); HEMATOCRIT 31.6 % (42-52); MEAN CORPUSCULAR HGB 29.4 PG (27.0-31.0); MEAN CORPUSCULAR HGB CONC 31.9 G/DL (33.0-37.0); MEAN PLATELET VOLUME 8.6 FL (7.4-10.4); PLATELET COUNT 191 /CUMM (130-400); RBC DISTRIBUTION WIDTH 16.7 % (11.5-14.5); RED BLOOD CELL CT 3.44 /CUMM (4.70-6.10); WHITE BLOOD CELL COUNT 15.4 /CUMM (4.8-10.8)
[2017-07-13 16:00] LABS: PT 10.5 SEC (9.4-12.5); PTT 26 SEC (25-37)
--- NOTE | 2017-07-13 16:57 | RADIOLOGY REPORT ---
EXAMINATION: XR PORTABLE CHEST CLINICAL INFORMATION: Altered mental status COMPARISON: 07/01/2017 chest x-ray TECHNIQUE: Portable AP view of the chest was obtained. FINDINGS: The cardiomediastinal silhouette is normal. There is opacity at the right lung base with obscuration of the right diaphragmatic border. The left lung is clear. No sizable pleural effusion. No pneumothorax. Degenerative changes of bilateral shoulder joints are noted. IMPRESSION: Right lower lobe pulmonary opacity, can represent pneumonia. Clinical correlation is suggested.
[2017-07-13] MEDS ORDERED: NARCAN4 MG NAS (18:28)
[2017-07-13] MEDS ORDERED: CRANBERRY250 M1 PO (18:54)
[2017-07-13] MEDS ORDERED: MAPAP325 M1 PO (18:56)
[2017-07-13] MEDS ORDERED: ACEPHEN650 M1 PR (19:19)
[2017-07-13] MEDS ORDERED: AMOXICILLIN500 M2 PO (19:19)
[2017-07-13] MEDS ORDERED: ONDANSETRON HCL4 MG PO (19:22)
[2017-07-13] MEDS ORDERED: GLUCAGON EMERGEN1 M1 IM (19:25)
[2017-07-13] MEDS ORDERED: NOVOLOG100 UNIT/2 SC (19:27)
[2017-07-13] MEDS ORDERED: MILK OF MA400 MG/52 PO (19:28)
[2017-07-13] MEDS ORDERED: DULCOLAX10 M1 RC (19:28)
[2017-07-13] MEDS ORDERED: FLEET ENEMA133 ML RC (19:30)
[2017-07-13] MEDS ORDERED: MELATONIN3 M4 PO (19:31)
[2017-07-13] MEDS ORDERED: ALBUTEROL2.5 MG/3 M INH/SOL (19:32)
[2017-07-13 21:44] VITALS: BP 134/59
== END 2017-07-13 22:13 ==
LOC: ERH 14:10
PROVIDERS: Physician Assistant
DX: I95.9 Hypotension, unspecified (principal); R55 Syncope and collapse; R15.9 Full incontinence of feces; G20 Parkinson's disease; E11.9 Type 2 diabetes mellitus without complications; Z79.4 Long term (current) use of insulin
CPT/HCPCS: 93005; 93010; 96360